=== PATIENT | female | born 1945 | race Caucasian/White ===

== ENCOUNTER → 2016-11-13 | Outpatient (CLI) | payer MEDICARE, OTHER ==
--- NOTE | 2016-11-13 11:46 | Diagnostic Imaging Report ---
EXAMINATION: Left breast diagnostic mammogram with a Computer Aided Detection (CAD) system. COMPARISON: 04/29/2016. FINDINGS: There is an asymmetry seen along the upper aspect of the lateral projection which, upon compression view, appears to resolve and is suggestive of summation artifact of parenchyma. The previously seen asymmetry along the central aspect of the left CC projection is less prominent, suggestive of summation artifact. IMPRESSION: No mammographic evidence of malignancy. An ultrasound evaluation is pending. ACR BI-RADS Category 0: Incomplete. (Needs additional imaging evaluation). Result letter will be mailed to the patient. Note: At least 10% of breast cancer is not imaged by mammography. Dictated by: Dictated on workstation # [id number]
--- NOTE | 2016-11-13 11:47 | Diagnostic Imaging Report ---
EXAMINATION: Left breast ultrasound. INDICATION: Asymmetry in the axillary region of the left breast. FINDINGS: The upper outer aspect of the left breast and axillary region were scanned with no underlying abnormality seen. IMPRESSION: Negative study. Annual screening mammograms are recommended. ACR BI-RADS Category 1: Negative. Dictated by: Dictated on workstation # [id number]
== END ==
LOC: RAD 08:33
PROVIDERS: ATTEND Nurse Practitioner
DX: N64.89 Other specified disorders of breast (principal)
CPT/HCPCS: 76642

== ENCOUNTER → 2016-12-13 | Outpatient (CLI) | payer MEDICARE, OTHER ==
--- NOTE | 2016-12-13 11:45 | Diagnostic Imaging Report ---
PROCEDURE: US Thyroid. TECHNIQUE: Multiple real-time grayscale images were obtained of the thyroid in various projections. INDICATION: Multinodular goiter. FINDINGS: The right lobe measures 4 x 1.6 x 1.5 cm. There is an 8 x 7 x 7 mm nodule in the upper pole. There is a 9 x 8 x 8 mm nodule in the lower on the right. The left lobe measures 3.8 x 1.9 x 1.4 cm. There is a large solid heterogeneous nodule in the left upper lobe measuring 2 x 1.4 x 1.3 cm. No hypervascularity demonstrated. IMPRESSION: Bilateral solid nodules with dominant nodule in the left lobe measuring 2 cm in greatest dimension. Would recommend either fine needle aspiration or sequential ultrasound followup. Dictated by: Dictated on workstation # [id number]
== END ==
LOC: RAD 10:51
PROVIDERS: ATTEND Family Medicine
DX: E04.2 Nontoxic multinodular goiter (principal)
CPT/HCPCS: 76536

== ENCOUNTER 2017-03-27 09:21 | Outpatient (CLI) | payer MEDICARE, OTHER ==
[~2017-03-27] VITALS: Ht 167.6 cm; Wt 91.6 kg
[2017-03-27 09:56] VITALS: BP 171/97
[2017-03-27] MEDS ORDERED: CALC-78 PO (14:40)
[2017-03-27] MEDS ORDERED: VITA150T PO (14:40)
[2017-03-27] MEDS ORDERED: curamin PO (14:40)
[2017-03-27] MEDS ORDERED: bio cleanse PO (14:40)
[2017-03-27] MEDS ORDERED: POTA99TA21 PO (14:40)
[2017-03-27] MEDS ORDERED: KRIL1CAP PO (14:40)
[2017-03-27] MEDS ORDERED: VITA-252 PO (14:40)
[2017-03-27] MEDS ORDERED: D-MA50PO PO (14:40)
[2017-03-27] MEDS ORDERED: [UNRECOGNIZED DRUG - OTHER] PO (14:40)
[2017-03-27] MEDS ORDERED: ESTR42.52 VG (14:40)
[2017-03-27] MEDS ORDERED: CRAN500T2 PO (14:40)
[2017-03-27] MEDS ORDERED: CHOLECALCIFEROL PO (14:40)
[2017-03-27] MEDS ORDERED: MULT-1038 PO (14:40)
[2017-03-27] MEDS ORDERED: VIT1CAPS9 PO (14:40)
[2017-03-27] MEDS ORDERED: C250T PO (14:40)
[2017-03-27] MEDS ORDERED: MAGNESIUM CALM PO (14:40)
[2017-03-27] MEDS ORDERED: HEMP SEED OIL PO (14:41)
== END 2017-03-27 09:45 | disposition home or self-care (01) ==
LOC: PREOP 09:21
PROVIDERS: ATTEND Podiatrist Foot & Ankle Surgery
DX: Z01.818 Encounter for other preprocedural examination (principal); M21.612 Bunion of left foot; M20.42 Other hammer toe(s) (acquired), left foot
CPT/HCPCS: 87081

== ENCOUNTER 2017-04-21 06:00 | Day surgery (SDC) | payer MEDICARE, OTHER ==
[~2017-04-21] VITALS: Ht 167.6 cm; Wt 91.6 kg
[~2017-04-21 06:00] MED LIST: C250T PO; CALC-78 PO; CHOLECALCIFEROL PO; CRAN500T2 PO; D-MA50PO PO; ESTR42.52 VG; HEMP SEED OIL PO; KRIL1CAP PO; MAGNESIUM CALM PO; MULT-1038 PO; POTA99TA21 PO; VIT1CAPS9 PO; VITA-252 PO; VITA150T PO; [UNRECOGNIZED DRUG - OTHER] PO; bio cleanse PO; curamin PO
[2017-04-21 06:30] VITALS: BP 148/87
[2017-04-21] MEDS ORDERED: LIDOCAINE PF 2% 5 ML (XYLOCAINE) VIAL ONE (06:54)
[2017-04-21] MEDS ORDERED: SEVOFLURANE (ULTANE) 15 ML INHAL SOLN ONE ×2 (06:54→09:55)
[2017-04-21] MEDS ORDERED: proPOfol 200 MG/20 ML (DIPRIVAN) VIAL IV ONE (06:54)
[2017-04-21] MEDS ORDERED: DEXAMETHASONE 10 MG/ML (DECADRON) 1 ML VIAL ONE (06:54)
[2017-04-21] MEDS ORDERED: ONDANSETRON 4 MG/2 ML (SDV) Z0FRAN ONE (06:54)
[2017-04-21] MEDS ORDERED: fentaNYL INJECTION 100 MCG/2 ML AMP ONE (06:54)
[2017-04-21] MEDS ORDERED: MIDAZOLAM 2 MG/2 ML (VERSED) VIAL ONE (06:55)
[2017-04-21] MEDS ORDERED: BUPIVACAINE 0.5% 30 ML (SENSORCAINE) VIAL ONE (06:58)
[2017-04-21] MEDS ORDERED: ceFAZolin 1 GM/NS 50 ML IVPB IV ONE ×2 (07:15)
[2017-04-21] MEDS: LACTATED RINGERS 1,000 ML IV PRN ×2 (07:27→09:25)
[2017-04-21] MEDS ORDERED: LISI-556 PO (07:30)
--- NOTE | 2017-04-21 07:38 | Progress Note-Pre Operative ---
Pre-Operative Progress Note H&P Reviewed The H&P was reviewed, patient examined and no changes noted. Date Seen by Provider: Apr 21, 2017 Time Seen by Provider: 07:37 Date H&P Reviewed: Apr 21, 2017 Time H&P Reviewed: 07:37 Pre-Operative Diagnosis: Hallux Valgus, Hammertoes 2,3,4,5 and hypertrophic 2, 3 metatarsals, left ZHANNA MYLES DPM Apr 21, 2017 7:38 am
[2017-04-21] MEDS ORDERED: LACTATED RINGERS 1,000 ML IV SCH (10:10)
--- NOTE | 2017-04-21 10:10 | Progress Note-Post Operative ---
Post-Operative Progess Note Surgeon (s)/Data Reduction Technician (s) Surgeon ZHANNA MYLES DPM Data Reduction Technician: NONE Pre-Operative Diagnosis Hallux Valgus, Hammertoes 2,3,4,5 and hypertrophic 2, 3 metatarsals, left Post-Operative Diagnosis same Procedure & Operative Findings Date of Procedure 04/21/17 Procedure Performed/Findings Naeem-Zaki type bunionectomy, left Reduction of hammertoes, 2, 3, 4, 5, left Anesthesia Type General Estimated Blood Loss Estimated blood loss (mL): Minimal Specimens/Packing Specimens Removed none ZHANNA MYLES DPM Apr 21, 2017 10:09
[2017-04-21] MEDS ORDERED: morphine INJ 4 MG/ML 1 ML (VIAL/SYRINGE) IV PRN (10:15)
[2017-04-21] MEDS ORDERED: CEPH500C PO (10:15)
[2017-04-21] MEDS ORDERED: ONDANSETRON 4 MG/2 ML (SDV) Z0FRAN IVP PRN (10:15)
[2017-04-21 11:00] VITALS: BP 169/84
[2017-04-21 11:30] VITALS: BP 164/77
[2017-04-21 12:00] VITALS: BP 151/98
[2017-04-21 12:25] VITALS: BP 151/98
--- NOTE | 2017-04-21 13:56 | OPERATIVE REPORT ---
DATE OF SERVICE: 04/21/2017 SURGEON: Zhanna Myles DPM PREOPERATIVE DIAGNOSES: 1. Hallux abductovalgus metatarsal primus varus, left. 2. Hammer digit syndrome 2, 3, 4 and 5, left foot. POSTOPERATIVE DIAGNOSES: 1. Hallux abductovalgus metatarsal primus varus, left. 2. Hammer digit syndrome 2, 3, 4 and 5, left foot. PROCEDURE: 1. Modified Naeem-Zaki bunionectomy, left. 2. Reduction of hammertoe 2, 3, 4 and 5 left foot. WOUND CLASS: Clean. ANESTHESIA: General. HEMOSTASIS: Pneumatic thigh tourniquet at 250 mmHg. INDICATION: This 72-year-old female presents complaining of painful bunion and hammertoes, left foot. Conservative therapy has met with unsatisfactory result and the patient is agreeable to surgical intervention after risks and complications were discussed at length. No guarantees were extended to the patient and she is willing to proceed. DESCRIPTION OF PROCEDURE: The patient was brought back to the operating room table, placed in secure supine position. A general anesthetic was then induced. Appropriate timeout was performed. A pneumatic thigh tourniquet was placed on the left lower extremity over several layers of padding. The left foot was then prepped and draped in normal sterile manner. The left foot was then elevated and allowed to exsanguinate after which the tourniquet was inflated to 250 mmHg. Attention was then directed to the dorsal aspect of the left first metatarsophalangeal joint where a 6 cm longitudinal linear incision was created. The incision was deepened down to the capsular tissue overlying the metatarsophalangeal joint where a longitudinal capsulotomy was performed exposing the hypertrophic eminence. Medial eminence to the first metatarsal head, which was resected utilizing a power sagittal saw. The dorsal eminence to the first metatarsal head was also reduced with a power sagittal saw. Blunt dissection was carried out into the first intermetatarsal space. With the release of the conjoint tendon of the adductor hallucis as well as the fibular sesamoidal ligament and a lateral capsulorrhaphy was also performed. The hallux was then forcibly adducted, released and additional fibers holding in its abnormal position. Attention was redirected to the medial aspect of the first metatarsal where a Chevron-type osteotomy was performed allowing the fragment to translocate laterally and it was fixated in its corrected position with a 0.062 threaded K-wire driven from proximal dorsal to distal plantar. The K-wire was cut, flushed with the dorsal aspect of the first metatarsal. The head of the first metatarsal was further contoured and smoothed with a power sagittal saw and power fadumo. There remained some medial deviation to the hallux and an Zaki-type procedure was then performed. The proximal phalanx was exposed with subperiosteal dissection, after which a wedge of bone was resected with the base medial and the lateral cortices held intact. Once the wedge of bone was resected, the gap was closed noting a good reduction of the lateral deviation of the hallux. Two siebel administrator holes were created at the dorsal medial aspect of the osteotomy after which a 28-gauge monofilament wire was passed through this siebel administrator hole securing the osteotomy in a closed position. Excellent bony apposition and fixation was noted to the first metatarsal as well as the proximal phalanx of the left hallux. The wound was flushed with copious amounts of normal saline throughout the procedure and closure was then performed in layers. Deep closure was performed with 3-0 Vicryl, superficial with 4-0 Vicryl, skin closed with 4-0 Prolene in a horizontal mattress type stitch. Attention was then directed to the dorsal aspect of the contracted second, third and fourth digits where the same procedure was performed to each toe. An incision was created from the surgical neck of the metatarsal to the distal interphalangeal joint. Dissection was carried out to deeper tissues with great care to identify and retract all vital neurovascular structures. All the necessary blood vessels were cauterized as encountered. The incision was deepened down to the extensor tendon overlying the proximal phalanx of the second, third and fourth digits where a Z slide lengthening was performed. The extensor tendon was reflected proximally and distally. The extensor chew overlying the metatarsophalangeal joint was released after which a dorsal capsulorrhaphy and release of the medial lateral collateral ligaments were performed to each of the exposed second, third and fourth metatarsophalangeal joint areas. Next, a peg-in-hole type arthrodesis was performed to the proximal interphalangeal joint with power sagittal saw and power fadumo. Excellent reduction of the hammertoe deformities was noted and the fixation was a 0.054 smooth K wire driven through the toes to secure them in their new rectus alignment. The excess K wire was cut and a protective ball placed over the end of the wire. The wounds were flushed with copious amounts of normal saline and closure was performed in layers with deep closure with a 3-0 Vicryl, superficial with 4-0 Vicryl, skin closed with 4-0 Prolene in a horizontal mattress type stitch. Attention was then directed to the left fifth digit where adductor varus contracture was noted. Two semi-elliptical incisions from proximal lateral to distal medial were created overlying the proximal interphalangeal joint. The circumscribed skin was removed in total. The incision was deepened down to the extensor tendon where a transverse tenotomy was performed as well as release of the medial lateral collateral ligaments exposing the hypertrophic head of the proximal phalanx. This head was then resected utilizing power sagittal saw. The wound was flushed with copious amounts of normal saline and closure was performed in layers. Deep closure was performed with 4-0 Vicryl, superficial closure was with 4-0 Vicryl and skin closed with 4-0 Prolene in a horizontal mattress type stitch. Postoperative injection consisted of 24 mL of 0.5% Marcaine injected in a local infusion to the surgical sites. A postoperative dressing was applied after the tourniquet was released noting appropriate capillary refill time to all digits of the left foot. The dressing consisted of Betadine soaked Adaptic, sterile 4 x 4, sterile Kerlix; all secured with Coban wrap. The patient tolerated the anesthesia and procedure well, was transported from the operating room to the recovery area with vital signs stable and vascular status intact to all digits of the left foot. She was given a prescription for Keflex postoperatively. She apparently has intolerance to codeine and preferred to just take Tylenol postoperatively for pain. She refused tramadol as an alternative. The patient will follow up in my office in 10 days' period of time or sooner if necessary. 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
--- NOTE | 2017-04-21 15:06 | Physical Therapy Ortho Eval ---
PT Orthopedic Evaluation Type of Surgery surgical repair of hallux rigidus/hammertoe. Prior Level of Function Current Living Status: Spouse Locomotion (Upon Admit): Independent Established Durable Medical Eq: Crutches Subjective Subjective Pt and spouse prefer crutches for ambulation instead of FWW. Entry Into Home: Stairs Without Railing Steps Into Home: 3 Steps Accessories: No Railing Motor Control Motor Control: Motor Control WNL ROM ROM: WFL Strength Strength: WFL Transfer Transfers (B, C, W/C) (FIM): 4 (post treatment 6) Gait Gait Assistive Device: Crutches Right Lower Extremity: Right Weight Bearing Status RLE: Full Weight Bearing Left Lower Extremity: Left Weight Bearing Status LLE: Non Weight Bearing Other Weight Bearing Inst.: spouse reports DR told him she could put weight through her heel Gait (FIM): 4 (post treatment, 5) Distance (FIM): 3=150 ft Summary/Comments Gait training with walker and crutches, pt and spouse prefer crutches. Education on safety with crutches and fit the crutches. Stair training with crutches practicing on a curb step. Pt able to go up/down with with close CGA and skilled cues for sequencing. Reviewed sequencing with pt/spouse and they were able to return verbalize. Spent time problem solving the stairs because initially, pt was unable to hop up the step. Attempted practice sitting and scooting, but pt unable to get to the step. Eventually, pt able to complete with crutches. Treatment Rendered Treatment: Gait Train, Step Train Assessment/Goals Goal Time Frame: 1 Visit Safe Ambulation: Yes Plan Treatment Plan: Discharge Time Time In: 1130 Time Out: 1215 Total Billed Treatment Time: 45 Billed Treatment Time visit EVM 30 GT 15 Yes PT/OT Therapy GCodes Therapy Functional Limitation: Physical Therapy Test(s)/Tool used to determine: Level of Assistance Scale Functional Limitation-Current Charge Code: MOBCUR Modifier: CK Functional Limitation-Goal Charge Code: MOBGOAL Modifier: CJ Functional Limitation-D/C Charge Codes: MOBDC Modifier: HALIE RUELAS PT Apr 21, 2017 15:06
--- NOTE | 2017-04-21 21:17 | Diagnostic Imaging Report ---
EXAMINATION: Two views of the left foot. INDICATION: Postop left foot. FINDINGS: There are multiple osteotomies seen of the heads of the proximal phalanges of the second, third, fourth, and fifth toes and osteotomies with internal fixation along the distal aspect of the first metatarsal and the proximal phalanx at the great toe level. Interphalangeal joint fusion with K-wires of the second, third, and fourth toes is seen. Joint alignment is in good position. IMPRESSION: Multiple osteotomies and internal fixation/joint fusion findings as described. Dictated by: Dictated on workstation # [id number]
== END 2017-04-21 12:25 | disposition home or self-care (01) ==
LOC: SDC 06:00
PROVIDERS: ATTEND Podiatrist Foot & Ankle Surgery
DX: M20.12 Hallux valgus (acquired), left foot (principal); M20.42 Other hammer toe(s) (acquired), left foot; I10 Essential (primary) hypertension; J30.2 Other seasonal allergic rhinitis; E04.1 Nontoxic single thyroid nodule; Z79.899 Other long term (current) drug therapy; Z88.2 Allergy status to sulfonamides; Z88.6 Allergy status to analgesic agent
CPT/HCPCS: 73620

== ENCOUNTER → 2017-06-02 | Outpatient (CLI) | payer MEDICARE, OTHER ==
[~2017-06-02] MED LIST changes: +CEPH500C PO; +LISI-556 PO
--- NOTE | 2017-06-02 18:19 | Diagnostic Imaging Report ---
PROCEDURE: US Thyroid. TECHNIQUE: Multiple real-time grayscale images were obtained of the thyroid in various projections. INDICATION: Thyroid nodules. Comparison made with prior examination from 12/13/2016. FINDINGS: Right lobe of the thyroid measures 4.2 x 1.6 x 1.4 cm. There is a heterogeneous nodule superiorly on the right measuring 0.8 x 0.7 cm. There is a similar nodule inferiorly measuring 0.8 x 0.9 cm. Left lobe of the thyroid measures 4.1 x 1.7 x 1.5 cm. There is a heterogeneous solid nodule in the superior aspect of the left lobe of the thyroid measuring 1.3 x 2 x 1.4 cm. IMPRESSION: Stable bilateral thyroid nodules likely adenomas. Recommend continued six-month follow-up to ensure stability. Dictated by: Dictated on workstation # [id number]
== END ==
LOC: RAD 09:36
PROVIDERS: ATTEND Nurse Practitioner Family
DX: E04.2 Nontoxic multinodular goiter (principal)
CPT/HCPCS: 76536

== ENCOUNTER → 2017-08-21 | Outpatient (CLI) | payer MEDICARE, OTHER ==
--- NOTE | 2017-08-21 13:09 | Diagnostic Imaging Report ---
INDICATION: Routine screening. COMPARISON: 04/12/2016 and 03/01/2014. TECHNIQUE: Screening digital mammography was performed bilaterally with a Computer Aided Detection (CAD) system. FINDINGS: Scattered fibroglandular densities are identified bilaterally. The parenchymal pattern appears stable. No dominant mass or malignant appearing microcalcifications are seen. There is an intraparenchymal lymph node in the region of the axillary tail on the left, stable. The axillae are unremarkable. IMPRESSION: No mammographic features suspicious for malignancy are identified. ACR BI-RADS Category 2: Benign findings. Result letter will be mailed to the patient. Note: At least 10% of breast cancer is not imaged by mammography. Dictated by: Dictated on workstation # [id number]
== END ==
LOC: RAD 10:42
PROVIDERS: ATTEND Obstetrics & Gynecology
DX: Z12.31 Encounter for screening mammogram for malignant neoplasm of breast (principal)
CPT/HCPCS: 77067

== ENCOUNTER → 2017-12-05 | Outpatient (CLI) | payer MEDICARE, OTHER ==
--- NOTE | 2017-12-05 11:00 | Diagnostic Imaging Report ---
PROCEDURE: US Thyroid. TECHNIQUE: Multiple real-time grayscale images were obtained of the thyroid in various projections. INDICATION: Thyroid nodules, followup. Correlation is made with prior thyroid ultrasound from 06/02/2017. Right lobe of the thyroid measures 3.9 x 1.5 x 1.6 cm and the left lobe measures 4.0 x 1.6 x 1.5 cm. Isthmus is 3 mm in thickness. Bilateral thyroid nodules again noted. Subcentimeter nodules in the right lobe appear stable. A dominant solid mass in the upper pole left lobe measures 2.1 x 1.4 x 1.6 cm. This compares with 2.0 x 1.3 x 1.4 cm. IMPRESSION: Overall fairly stable appearance to the thyroid when compared to examination 6 months earlier. Continued followup is recommended to confirm stability. The dominant nodule in the left lobe would be amenable to fine-needle aspiration, if clinically indicated. Dictated by: Dictated on workstation # [id number]
== END ==
LOC: RAD 09:21
PROVIDERS: ATTEND Nurse Practitioner Family
DX: E04.2 Nontoxic multinodular goiter (principal)
CPT/HCPCS: 76536

== ENCOUNTER → 2018-05-14 | Outpatient (CLI) | payer MEDICARE, OTHER ==
--- NOTE | 2018-05-14 18:11 | Diagnostic Imaging Report ---
PROCEDURE: MRI right joint upper extremity without contrast. TECHNIQUE: Multiplanar, multisequence non contrast-enhanced MRI of the right upper extremity was accomplished. INDICATION: Shoulder pain. COMPARISON: There are no prior studies available for comparison. FINDINGS: On the T2 fat-saturated coronal series, there is an area of altered signal along the bursal aspect of the midportion of the rotator cuff. I suspect that this does represent a partial tear. There is also a rim rent tear of the rotator cuff along the anterior-most insertion of the rotator cuff. The rotator cuff in this area is slightly bunched. The supraspinatus muscle however is not retracted. There is hypertrophy of the acromioclavicular joint and this does result in mild narrowing of the outlet for the supraspinatus muscle. There is also a trace amount of fluid in the subacromial and subdeltoid bursa and this suggests edema/inflammation. The biceps tendon and the subscapularis tendon are intact. The labrum is thinned and irregular and most likely torn on a degenerative basis. There is no evidence for joint effusion but there is a small amount of fluid in the bursa anterior to the shoulder joint. There is no abnormal signal arising from the osseous structures to indicate bone edema or fracture. IMPRESSION: 1. There is a tear along the bursal aspect of the midportion of the rotator cuff. There is also another tear extending along the anterior insertion of the rotator cuff. This would be consistent with a rim rent tear. The supraspinatus muscle is slightly bunched but not retracted. 2. There is hypertrophy of the acromioclavicular joint and this does result in mild narrowing of the outlet for the supraspinatus muscle. There also appears to be an element of tendinitis present. 3. The labrum is thinned and torn on a degenerative basis. 4. There is no acute bony abnormality noted. Dictated by: Dictated on workstation # [id number]
--- NOTE | 2018-05-14 18:57 | Diagnostic Imaging Report ---
PROCEDURE: MRI left upper extremity without contrast. TECHNIQUE: Multiplanar, multisequence non contrast-enhanced MRI of the left upper extremity was accomplished. INDICATION: Shoulder pain. COMPARISON: There are no prior MRI examinations available for comparison. FINDINGS: On the T2 fat-saturated series, there are small areas of altered signal within the substance of the rotator cuff. These are more likely due to tendinosis than to a partial tear. The bursal aspect of the rotator cuff is somewhat thinned, but for the most part, the rotator cuff seems to be intact. The supraspinatus muscle is not retracted or bunched. There is hypertrophy of the acromioclavicular joint, and this does result in mild narrowing of the outlet for the supraspinatus muscle. There is also a small amount of fluid in the subacromial bursa, and this does suggest that there is an element of inflammation present as well. The biceps tendon and the subscapularis tendon are intact. The labrum is thinned and most likely torn on a degenerative basis. There is a very small joint effusion present. There is no abnormal signal arising from the osseous structures to suggest bone edema or a fracture. IMPRESSION: 1. There is tendinosis of the rotator cuff, but for the most part, the rotator cuff appears to be intact. 2. There is hypertrophy of the acromioclavicular joint, and this does slightly narrow the outlet for the supraspinatus muscle. The trace amount of fluid in the subacromial bursa also suggests that there is an element of inflammation present. 3. The labrum is thinned and most likely torn on a degenerative basis. 4. There is no acute bony abnormality noted. Dictated by: Dictated on workstation # [id number]
== END ==
LOC: RAD 16:32
PROVIDERS: ATTEND Orthopaedic Surgery
DX: M75.102 Unspecified rotator cuff tear or rupture of left shoulder, not specified as traumatic (principal); M47.814 Spondylosis without myelopathy or radiculopathy, thoracic region; M25.812 Other specified joint disorders, left shoulder; M25.811 Other specified joint disorders, right shoulder; M65.89 Other synovitis and tenosynovitis, multiple sites; M75.101 Unspecified rotator cuff tear or rupture of right shoulder, not specified as traumatic
CPT/HCPCS: 73221

== ENCOUNTER 2018-06-24 09:57 | Outpatient (CLI) | payer MEDICARE, OTHER ==
[~2018-06-24] VITALS: Ht 167.6 cm; Wt 93.6 kg
[2018-06-24] MEDS ORDERED: VITA1CAP16 PO (10:24)
[2018-06-24] MEDS ORDERED: FEXO180T84 PO (10:24)
[2018-06-24] MEDS ORDERED: IODINE PO (10:24)
[2018-06-24 10:27] VITALS: BP 156/86
[2018-06-24 10:57] LABS: BILIRUBIN,URINE NEGATIVE (NEGATIVE); CLARITY,URINE CLEAR; COLOR,URINE YELLOW; GLUCOSE, URINE (UA) NEGATIVE (NEGATIVE); KETONES,URINE NEGATIVE (NEGATIVE); LEUKOCYTE ESTERASE ,URINE 1+ (NEGATIVE); NITRITE,URINE NEGATIVE (NEGATIVE); PH,URINE 7 (5-9); PROTEIN,URINE NEGATIVE (NEGATIVE); UROBILINOGEN,URINE NORMAL (NORMAL)
[2018-06-24 10:57] LABS: BASOPHILS % (AUTO) 0 % (0-10); EOSINOPHILS # (AUTO) 0.2 10^3/uL (0.0-0.3); EOSINOPHILS % (AUTO) 3 % (0-10); HEMATOCRIT 40 % (35-52); HEMOGLOBIN 13.8 G/DL (11.5-16.0); LYMPHOCYTES # (AUTO) 1.5 X 10^3 (1.0-4.0); LYMPHOCYTES % (AUTO) 27 % (12-44); MEAN CORPUSCULAR HEMOGLOBIN 29 PG (25-34); MEAN CORPUSCULAR HGB CONC 35 G/DL (32-36); MEAN CORPUSCULAR VOLUME 84 FL (80-99); MONOCYTES # (AUTO) 0.3 X 10^3 (0.0-1.0); MONOCYTES % (AUTO) 5 % (0-12); NEUTROPHILS # (AUTO) 3.7 X 10^3 (1.8-7.8); NEUTROPHILS % (AUTO) 65 % (42-75); PLATELET COUNT 242 10^3/uL (130-400); RED CELL DISTRIBUTION WIDTH 13.9 % (10.0-14.5); WHITE BLOOD COUNT 5.7 10^3/uL (4.3-11.0)
[2018-06-24 11:09] LABS: BACTERIA,URINE MODERATE /HPF
[2018-06-24 11:10] LABS: PROTHROMBIN TIME PATIENT 13.1 SEC (12.2-14.7)
[2018-06-24 11:22] LABS: ALANINE AMINOTRANSFERASE 25 U/L (0-55); ALBUMIN 4.1 GM/DL (3.2-4.5); ALKALINE PHOSPHATASE 75 U/L (40-136); BILIRUBIN,TOTAL 0.5 MG/DL (0.1-1.0); BUN/CREATININE RATIO 23; CALCIUM 9.4 MG/DL (8.5-10.1); CARBON DIOXIDE 23 MMOL/L (21-32); CHLORIDE 109 MMOL/L (98-107); CREATININE SERUM 0.79 MG/DL (0.60-1.30); ERYTHROCYTE SEDIMENTATION RATE 7 MM/HR (0-30); GFR ESTIMATED > 60; GLUCOSE 101 MG/DL (70-105); POTASSIUM 4.1 MMOL/L (3.6-5.0); SODIUM 142 MMOL/L (135-145); TOTAL PROTEIN 6.8 GM/DL (6.4-8.2)
--- NOTE | 2018-06-24 11:38 | Diagnostic Imaging Report ---
EXAMINATION: PA and lateral Chest at 10:58 a.m. INDICATION: Preop total knee. COMPARISON: There are no prior studies available for comparison. FINDINGS: The heart size is within normal limits. There are a few coarse interstitial densities in each lung base. I suspect these findings are chronic in nature. If previous studies are available, they would be helpful for comparison. There is no evidence for overt failure, pneumonia, or for a pleural effusion. The mediastinum is not widened. The osseous structures are intact. IMPRESSION: 1. The coarse interstitial densities in both lower lobes are most likely chronic in nature. If previous exams are available, they would be helpful for comparison. 2. There is no acute cardiopulmonary abnormality identified. Dictated by: Dictated on workstation # [id number]
--- NOTE | 2018-06-24 15:48 | NUR ---
CALLED AND FAXED LAB WORK TO DR. VILLASEÑOR'S OFFICE AND PRIMARY CARE PROVIDER DREA AT [facility].
== END 2018-06-24 16:01 | disposition home or self-care (01) ==
LOC: PREOP 09:57
PROVIDERS: ATTEND Orthopaedic Surgery
DX: Z01.810 Encounter for preprocedural cardiovascular examination (principal); Z01.811 Encounter for preprocedural respiratory examination; Z01.812 Encounter for preprocedural laboratory examination; Z11.2 Encounter for screening for other bacterial diseases; M17.12 Unilateral primary osteoarthritis, left knee; R53.83 Other fatigue
CPT/HCPCS: 36415; 71046; 80053; 81000; 85025; 85610; 85652; 86850; 86900; 86901; 87081

== ENCOUNTER 2018-06-29 14:08 | Outpatient (RCR) | payer MEDICARE, OTHER ==
[~2018-06-29 14:08] MED LIST changes: +FEXO180T84 PO; +IODINE PO; +VITA1CAP16 PO
== END 2018-06-29 17:00 | disposition home or self-care (01) ==
PROVIDERS: ATTEND Nurse Practitioner Family
DX: M25.512 Pain in left shoulder (principal); M25.511 Pain in right shoulder

== ENCOUNTER 2018-07-01 07:33 | Inpatient (IN) | payer MEDICARE, OTHER ==
--- NOTE | 2018-06-22 12:12 | HISTORY AND PHYSICAL ---
DATE OF SERVICE: 07/01/2018 DATE OF ADMISSION: 07/01/2018, for left total knee arthroplasty. The patient will require regular inpatient admission for pain management issues, gait abnormalities and instability as well as weakness. HISTORY OF PRESENT ILLNESS: The patient is a 73-year-old female with longstanding progressive left knee pain. She has undergone treatment with injections with only temporary relief of her symptoms. Radiographs reveal severe medial ad patellofemoral arthrosis. Due to functional impairment and failure to improve with conservative measures, the patient has elected to proceed with surgical intervention. REVIEW OF SYSTEMS: No chest pain, no shortness of breath, no dysuria. PAST MEDICAL HISTORY: Significant for . PAST SURGICAL HISTORY: Hysterectomy, abdominal A and P repair, right total knee arthroplasty and foot surgery. FAMILY HISTORY: Significant for cancer. PRIMARY CARE PROVIDER: Dr. Ruano. MEDICATIONS: Cranberry, potassium, Estrace, Krill oil, folic acid, vitamins, lisinopril. ALLERGIES: CIPRO, CODEINE and SULFA. SOCIAL HISTORY: The patient denies alcohol and tobacco use. PHYSICAL EXAMINATION: GENERAL: The patient is well developed, well-nourished, in no acute distress. HEENT: Normocephalic, atraumatic. Pupils are equal, round and reactive to light. Oropharynx is clear. NECK: Supple, no lymphadenopathy. LUNGS: Clear to auscultation bilaterally. HEART: Regular rate and rhythm. ABDOMEN: Soft, nontender, nondistended. EXTREMITIES: The patient ambulates with an antalgic gait on the left. The left knee demonstrates a moderate effusion. Range of motion is 0/5/120. There is no varus valgus laxity. Negative anterior and posterior drawer. IMPRESSION: Left knee severe osteoarthritis, unresponsive to conservative measures. PLAN: Left total knee arthroplasty. The risks, benefits, options, ramifications and recovery were discussed at length with the patient. She understands and wishes to proceed. Job ID: [id number] DocumentID: [id number] Dictated Date: 06/22/2018 11:32:36 Manager E Learning Date: 06/22/2018 12:11:14 Dictated By: VETO VILLASEÑOR MD
--- NOTE | 2018-06-24 14:01 | NUR ---
MEDICATIONS WERE REVIEWED IN PREOP. I VERIFIED WITH [facility] THEY FILLED LISINOPRIL 5MG DAILY #[id number] 05-11-18. LEFT OTHER MEDICATIONS THEY WERE REVIEWED BY PREOP NURSE.
[~2018-07-01] VITALS: Ht 167.6 cm; Wt 93.6 kg
[2018-07-01 07:35] VITALS: BP 145/98
[2018-07-01] MEDS ORDERED: MIDAZOLAM 2 MG/2 ML (VERSED) VIAL ONE (07:42)
[2018-07-01] MEDS ORDERED: ROPIVACAINE 5MG/ML 30ML VIAL ONE (07:42)
[2018-07-01] MEDS ORDERED: LIDOCAINE PF 2% 5 ML (XYLOCAINE) VIAL ONE ×2 (07:42→08:33)
[2018-07-01] MEDS ORDERED: CEFUROXIME INJECTION 1,500 MG in WATER (STERILE) FOR INJECTION 15 ML IV ONE (07:45)
[2018-07-01] MEDS: LACTATED RINGERS 1,000 ML IV PRN ×2 (08:10→09:57)
[2018-07-01] MEDS ORDERED: ONDANSETRON 4 MG/2 ML (SDV) Z0FRAN ONE (08:33)
[2018-07-01] MEDS ORDERED: DEXAMETHASONE 10 MG/ML (DECADRON) 1 ML VIAL ONE (08:33)
[2018-07-01] MEDS ORDERED: proPOfol 200 MG/20 ML (DIPRIVAN) VIAL IV ONE (08:33)
[2018-07-01] MEDS ORDERED: fentaNYL INJECTION 100 MCG/2 ML AMP ONE ×2 (08:34→10:53)
[2018-07-01] MEDS ORDERED: SEVOFLURANE (ULTANE) 15 ML INHAL SOLN ONE ×7 (08:34→10:44)
[2018-07-01] MEDS ORDERED: ROCURONIUM 10 MG/ML 5 ML SYRINGE IV ONE (08:34)
[2018-07-01] MEDS ORDERED: INTRA-ARTICULAR IU ONE ×5 (09:00)
--- NOTE | 2018-07-01 09:03 | Progress Note-Pre Operative ---
Pre-Operative Progress Note H&P Reviewed The H&P was reviewed, patient examined and no changes noted. Date Seen by Provider: Jul 01, 2018 Time Seen by Provider: :02 Date H&P Reviewed: Jul 01, 2018 Time H&P Reviewed: 09:02 Pre-Operative Diagnosis: left knee primary osteoarthritis VETO VILLASEÑOR MD Jul 01, 2018 09:03
--- NOTE | 2018-07-01 09:05 | Progress Note-Post Operative ---
Post-Operative Progess Note Surgeon (s)/Cardiac Cath Lab Manager (s) Surgeon VETO VILLASEÑOR MD Cardiac Cath Lab Manager: Austin Mullins Pre-Operative Diagnosis left knee primary osteoarthritis Post-Operative Diagnosis left knee primary osteoarthritis Procedure & Operative Findings Date of Procedure 07/01/18 Procedure Performed/Findings left total knee arthroplasty Anesthesia Type GETA Estimated Blood Loss Estimated blood loss (mL): minimal Specimens/Packing Specimens Removed none Packing: none VETO VILLASEÑOR MD Jul 01, 2018 09:05
[2018-07-01] MEDS ORDERED: OXYC1TAB87 PO (09:06)
--- NOTE | 2018-07-01 09:08 | D/C HH Face to Face Order ---
D/C Face to Face Orders Instructions for Patient [facility], Patient Instructions/FollowUp: three weeks Physician to follow Patient: three weeks Discharge Diet for Home: Regular Diet Patient Data-Allergies,Ht & Wt Patient Allergies: Coded Allergies: codeine (Verified Allergy, Severe, RACING HEART, 06/24/18) Sulfa (Sulfonamide Antibiotics) (Verified Allergy, Mild, "DOES NOT WORK", 06/24/18) ciprofloxacin (Verified Allergy, Unknown, PT REFUSES TO TAKE, 06/24/18) Height (Feet): 5 Height (Inches): 6.00 Weight (Pounds): 206 Weight (Ounces): 7.0 Home Health Need/Face to Face Date of Face to Face: Jul 01, 2018 Clinical Findings: Instability, Muscle weakness, Pain with ambulation, Unsteady gait I have seen Pt [id number]: Yes Discharged To: Home Diagnosis/Conditions: left total knee arthroplasty Patient is Homebound due to: Yahaira fall risk due to instabilty, Muscle weakness , Pain w/ambulation Homebound Status Due to the above stated illness, injury or surgical procedure (medical condition or diagnosis) and associated clinical findings, the patient is homebound because of his/her inability to leave home except with aid of a supportive device and/or person AND leaving the home requires a considerable and taxing effort or is medically contraindicated. Pt req the following assistanc: Walker Home Health Nursing Orders Home Health Services Order: Physical Therapy-Evaluate & Treat DC left knee juwan and apply steri strips 07/15/18 Home Health Infusion Therapy Line Start Date: Jul 01, 2018 Line Start Time: 809 Line Type: Peripheral IV Site Location: Forearm Therapy Orders Therapy Orders: Physical Therapy, PT to assess for OT Therapy Specific Orders: Eval assistive deivces, Teach enviro modifications/ safety, Gait training, Provider maintenance therapy, Restore ROM Certify Stmt I certify that this patient is under my care and that I, a nurse practitioner or a physician; a chiropractor assistant working with me, had a face to face encounter that - meets the physician face to face encounter requirements with this patient as dated. VETO VILLASEÑOR MD Jul 01, 2018 09:08
[2018-07-01] MEDS ORDERED: diphenhydrAMINE 50 MG/ML INJ (BENADRYL) IVP PRN (09:15)
[2018-07-01] MEDS ORDERED: ONDANSETRON 4 MG/2 ML (SDV) Z0FRAN IVP PRN ×2 (09:15→11:15)
[2018-07-01] MEDS ORDERED: morphine INJ 4 MG/ML 1 ML (VIAL/SYRINGE) IVP PRN (09:15)
[2018-07-01] MEDS ORDERED: oxyCODONE/APAP 5/325MG (PERCOCET 5) TABLET PO PRN (09:15)
[2018-07-01] MEDS ORDERED: ACETAMINOPHEN 325 MG TABLET PO PRN (09:15)
[2018-07-01] MEDS ORDERED: TRANEXAMIC ACID 100 MG/ML 10 ML INJECTION IV ONE (09:41)
[2018-07-01] MEDS ORDERED: GLYCOPYRROLATE 0.2 MG/ML (ROBINUL) 2 ML VIAL ONE (10:41)
[2018-07-01] MEDS ORDERED: NEOSTIGMINE 1 MG/ML 5 ML SYRINGE ONE (10:41)
[2018-07-01] MEDS ORDERED: HYDROmorphone 2 MG/ML VIAL (DILAUDID) IV ONE (11:15)
[2018-07-01] MEDS ORDERED: fentaNYL INJECTION 100 MCG/2 ML AMP IVP ONE (11:15)
[2018-07-01] MEDS ORDERED: HYDROmorphone 2 MG/ML VIAL (DILAUDID) ONE (11:25)
--- NOTE | 2018-07-01 11:34 | Diagnostic Imaging Report ---
INDICATION: Left total knee replacement. COMPARISON: None. FINDINGS: Two views of the left knee were obtained. Expected postoperative changes are seen from left knee total arthroplasty. Femoral and tibial components appear well-seated. There is no evidence of periprosthetic fracture. There is a small amount of subcutaneous emphysema in the soft tissues over the knee. Postsurgical drain is seen at the level of the patella. Skin juwan are seen centrally over the anterior aspect of the knee. No unexpected radiopaque foreign bodies are identified. IMPRESSION: Expected postsurgical changes from left knee total arthroplasty, as described above. No unexpected radiopaque foreign bodies. Dictated by: Dictated on workstation # [id number]
--- NOTE | 2018-07-01 11:50 | Progress Note-Standard ---
Standard Progress Note Progress Notes/Assess & Plan Date Seen by a Provider: Jul 01, 2018 Time Seen by a Provider: 11:46 Progress/Assessment & Plan post op check no complaints radiographs--HW well positioned without fracture LLE--2 plus DP pulse with brisk cap refill. Intact DF and PF of toes and ankle. sensation intact to light touch throughout s/p LTKA mobilize as able VETO VILLASEÑOR MD Jul 01, 2018 11:50
--- NOTE | 2018-07-01 12:15 | NUR ---
DAYO ZAMORA admitted to room 407-1, admitted from surgery after left total knee replacement, on 07/01/18 via bed, accompanied by staff and family ( present room during bedside report).DAYO ZAMORA introduced to surroundings, call light, bed controls, phone, TV, temperature control, lights, meal times, smoking policy, visitor policy, side rail policy, bathrooms and showers. Patient Rights given to patient in the handbook. DAYO ZAMORA verbalizes understanding that [facility] is not responsible for the loss or damage to any personal effects or valuables that are kept in the patients posession during their hospitalization. The following Patient Care Plans and discharge were discussed with the patient. DAYO ZAMORA verbalizes understanding of Interdisciplinary Patient Education.
[2018-07-01] MEDS ORDERED: ACETAMINOPHEN 500 MG TAB (TYLENOL) ONE (12:31)
[2018-07-01] MEDS ORDERED: NS IV 1000 ML 1,000 ML ONE (12:32)
[2018-07-01] MEDS: NS IV 1000 ML 1,000 ML IV SCH ×2 (12:42→21:19)
[2018-07-01] MEDS: ACETAMINOPHEN 500 MG TAB (TYLENOL) PO PRN ×2 (12:43→23:10)
[2018-07-01 13:30] VITALS: BP 186/81
--- NOTE | 2018-07-01 14:02 | OPERATIVE REPORT ---
DATE OF SERVICE: 07/01/2018 PREOPERATIVE DIAGNOSIS: Left knee primary osteoarthritis. POSTOPERATIVE DIAGNOSIS: Left knee primary osteoarthritis. PROCEDURE: Left total knee arthroplasty. SURGEON: Manolo Villaseñor MD. SEXUAL HEALTH PHYSICIAN: Austin Mullins, who assisted throughout the procedure and closed the incisions. ANESTHESIA: General endotracheal by Dr. Montemayor. TOURNIQUET TIME: Approximately 70 minutes at 300 mmHg. ESTIMATED BLOOD LOSS: Minimal. DRAINS: None. COMPLICATIONS: None. POSTOPERATIVE PLAN: Routine protocol. MATERIALS: MicroPort cemented size 5 femur, cemented size 4+ tibia with a 10 mm insert and cemented size 29 patellar button. The patient was transferred to the recovery room awake and stable condition. STATEMENT OF MEDICAL NECESSITY: The patient is a 73-year-old female with longstanding progressive left knee pain. Radiographs revealed severe patellofemoral arthritis with moderate medial arthritis. She had undergone treatment with injections, anti-inflammatories and rest without relief and due to functional impairment and failure to improve with conservative measures, the patient elected to proceed with surgical intervention. DESCRIPTION OF PROCEDURE: After the risks and benefits of the procedure were discussed and questions were answered and informed consent was signed and placed on chart, the operative site was confirmed in the preoperative holding area initialed by the surgeon. The patient was then transferred to the operating room and after adequate levels of general endotracheal anesthetic were obtained, a timeout was called confirming the operative site. Left lower extremity was prepped and draped in the usual sterile fashion with the leg elevated and the knee flexed, the tourniquet was inflated to 300 mmHg. A standard anterior approach was utilized. Hemostasis was obtained with the cautery. A medial parapatellar arthrotomy was performed leaving a 1 cm cuff on the patella for later reattachment. A portion of the fat pad was resected. The ACL was released. A subperiosteal release was performed on the proximal medial tibia being careful to stay on the bony surface. Intramedullary guide was passed into the femur. The distal cutting block was placed and the distal cut was made. The femur sized to a size 5. The 5 cutting block was placed parallel to the epicondylar axis and cuts were made from posterior to anterior. Subperiosteal release was then carefully performed of the posterior distal femur being careful to stay on the bony surface. Intramedullary guide was then passed into the tibia. The cutting block was placed. The drop ozzy transected the intramedullary access and the cut was made. The four plus baseplate was placed, pinned into position and then prepared with a drill and keel punch. The femoral trial was placed and the trochlear cut was made. A 10 mm insert was placed. The patella was then prepared by resecting 10 mm off the undersurface. The peg guide was placed and the peg holes were drilled. A 29 trial button was placed. The knee had full extension, 120 degrees of flexion against gravity was easily obtained. There was no anterior/posterior or medial/lateral laxity in the flexion or extension. The patella tracked well. The trials were removed. The joint was irrigated with a pulse lavage. The periarticular block was placed in the posterior capsule, medial and lateral retinaculum extensor mechanism as well as the subcutaneous tissue. The bone ends were irrigated and dried. The tibial baseplate was cemented into position. Excessive cement was removed. The tibial superior surface was irrigated and dried and the polyethylene insert was placed. The distal femur was irrigated and dried and the femoral prosthesis was cemented in position. Excessive cement was removed. The knee was brought into a full extension until the cement had cured. The undersurface of the patella was irrigated and dried. The patellar button was cemented into position. Excessive cement was removed. Once the cement had cured, the knee was taken through a range of motion, full extension was easily obtained, 125 degrees of flexion with gravity was easily obtained. There was no anterior/posterior or medial/lateral laxity in flexion or extension. The joint was further irrigated with the pulse lavage. The arthrotomy was closed with #2 Tevdek in [id number] interrupted fashion. The knee was flexed and the repair was found to be stable. The subcutaneous tissues were irrigated using a total of 6 liters throughout the procedure. A 0 Vicryl was used for the deep subcutaneous tissue, 2-0 Vicryl for the superficial subcutaneous tissue and juwan were used on the skin and a soft dressing was applied. The tourniquet was deflated and the patient was transferred to the recovery room awake and stable condition. Job ID: [id number] DocumentID: [id number] Dictated Date: 07/01/2018 11:12:26 Wheel And Caster Repairer Date: 07/01/2018 14:02:12 Dictated By: MANOLO VILLASEÑOR MD
--- NOTE | 2018-07-01 14:58 | Physical Therapy Evaluation ---
PT Evaluation-General Medical Diagnosis Admission Date Jul 01, 2018 at 07:33 Medical Diagnosis: L TKA Onset Date: Jul 01, 2018 Therapy Diagnosis Therapy Diagnosis: decreased ROM, decreased mobility, gait deviation Height/Weight Height (Feet): 5 Height (Inches): 6.00 Weight (Pounds): 206 Weight (Ounces): 7.0 Precautions Precautions/Isolations: Standard Precautions Weight Bear Status Right Lower Extremity: Right Full Weight Bearing Left Lower Extremity: Left Full Weight Bearing Referral Reason for Referral: Evaluation/Treatment Medical History Current History Pt admitted for elective left TKR. Reviewed History: Yes Social History Home: Multilevel Current Living Status: Spouse Entry Into Home: Stairs Without Railing PT Steps Into Home: 2 Prior/Core FIM Prior Level of Function Therapy Code Descriptions/Definitions Functional [place] Measure: 0=Not Assessed/NA 4=Minimal Assistance 1=Total Assistance 5=Supervision or Setup 2=Maximal Assistance 6=Modified [place] 3=Moderate Assistance 7=Complete [place] Therapy Quality Codes: 6 Independent with activity with or without an assistive device 5 Patient requires set up or clean up by helper. Patient completes activity by themselves 4 Supervision or touching assist (CGA). [place] provide cues , steadying assist 3 The helper provides less than half the effort to complete the activity 2 The helper provides more than half the effort to complete the activity 1 Dependent. The helper does all the effort to complete an activity 7 Patient refused to complete or attempt activity 9 The patient did not perform the activity before the current illness or injury 88 Not attempted due to Medical conditions or safety concerns Functional Abilities and Goals: Independent: Patient completed the activities by him/herself, with or without an assistive device, with no assistance from a helper. Needed Some Help: Patient needed partial assistance from another person to complete activities. Dependent: A helper completed the activities for the patient. Unknown: Not Applicable: Bed Mobility: 7 Transfers (B,C,W/C) (FIM): 7 Gait: 7 Stairs: 7 Indoor Mobility (Ambulation): Independent Stairs: Independent Prior Devices Use: None PT Evaluation-Current Subjective Pt in bed with in room and agrees to PT. Pt reports that she cannot feel her L foot but pain is okay. Pain Numeric Pain Scale: 2 Location: Left Location Body Site: Knee Pt/Family Goals Pt to return home with . Objective Patient Orientation: Person, Place, Situation, Normal For Age Problem Solving: Good Attachments: SCD's, Polar Pack, IV ROM/Strength ROM Lower Extremities RLE WNL LLE 65 flex +5 ext Strength Lower Extremities NT Integumentary/Posture Integumentary intact Bowel Incontinence: No Bladder Incontinence: No Neuromuscular (Tone, Coordination, Reflexes) WFL Sensory Vision: Wears Glasses Hearing: Functional Hand Dominance: Right Sensation Right Lower Extremit: Intact Sensation Left Lower Extremity: Impaired Transfers Therapy Code Descriptions/Definitions Functional [place] Measure: 0=Not Assessed/NA 4=Minimal Assistance 1=Total Assistance 5=Supervision or Setup 2=Maximal Assistance 6=Modified [place] 3=Moderate Assistance 7=Complete [place] Transfers (B, C, W/C) (FIM): 5 Scootin Rollin Supine to/from Sit: 5 Sit to/from Stand: 4 Gait Mode of Locomotion: Walk Anticipated Mode of Locomotion: Walk Gait (FIM): 1 Distance (FIM): 1=up to 49 ft Distance: 5' Gait Level of Assist: 4 Gait Persons Needed: 1 Gait Assistive Device: FWW Comments/Gait Description Pt barely bears any weight through LLE due to lack of sensation. Balance Sitting Static: Good Sitting Dynamic: Good Standing Static: Good Standing Dynamic: Fair Treatment Applied CPM 0-55 degrees Assessment/Needs Pt was able to perform supine LE ex of (HS, quad set, SAQ, and SLR) with min A of LLE. Pt was PROM of ankle due to lack of sensation and unable to perform AP. Pt was able to perform all bed mobility with SBA. Pt was min A-CGA during sit<> stand transfers from bed and commode to FWW. Pt was able to amb 5' with FWW and CGA bed to/from commode. Pt is now in bed with CPM set at 56 degrees flex and - 2 extension. Pt has all needs met. Rehab Potential: Good PT Short Term Goals Short Term Goals Time Frame: Jul 08, 2018 Transfers (B,C,W/C) (FIM): 6 Gait (FIM): 5 Distance (FIM): 6=654-02 ft Gait Distance Comment: 100' Gait Level of Assist: 5 Gait Assistive Device: FWW PT Plan Problem List Problem List: Activity Tolerance, Functional Strength, Safety, Balance, Gait, Transfer, Bed Mobility, ROM Treatment/Plan Treatment Plan: Continue Plan of Care Treatment Plan: Bed Mobility, Education, Functional Activity Rad, Functional Strength, Gait, Safety, Therapeutic Exercise, Transfers Treatment Duration: Jul 08, 2018 Frequency: 6 times per week Estimated Hrs Per Day: .25 hour per day (15-30 min) Patient and/or Family Agrees t: Yes Safety Risks/Education Patient Education: Gait Training, Transfer Techniques, Steps, Correct Positioning, Safety Issues Teaching Recipient: Patient, Family Teaching Methods: Demonstration, Discussion Discharge Recommendations Therapy D/C Recommendations: Home w/ Family Support Equpiment Recommendations-D/C: Front Wheeled Walker Time/GCodes Time In: 1400 Time Out: 1434 Total Billed Treatment Time: 34 Total Billed Treatment 1 visit EVL 14 min EX 20 min HALIE BARRIENTOS PT Jul 01, 2018 14:58
[2018-07-01 16:00] VITALS: BP 167/78
[2018-07-01] MEDS ORDERED: ARTIFICAL TEARS 0.4 ML UNIT DOSE (REFRESH PLUS) ONE (16:45)
[2018-07-01] MEDS: CEFUROXIME INJECTION 750 MG in WATER (STERILE) FOR INJECTION 10 ML IV SCH (16:50)
[2018-07-01] MEDS ORDERED: IBUPROFEN 800 MG (MOTRIN) TAB PO ONE (17:15)
[2018-07-01] MEDS: IBUPROFEN 800 MG (MOTRIN) TAB PO PRN (17:20)
[2018-07-01] MEDS ORDERED: IBUPROFEN 800 MG (MOTRIN) TAB PO SCH (18:00)
[2018-07-01 20:00] VITALS: BP 168/87
[2018-07-01] MEDS: SENNA W/DOCUSATE (SENOKOT S) TABLET PO SCH (21:19)
[2018-07-02] VITALS (7 sets, daily range): BP systolic 160–193; BP diastolic 78–97
[2018-07-02] MEDS: CEFUROXIME INJECTION 750 MG in WATER (STERILE) FOR INJECTION 10 ML IV SCH (00:48)
[2018-07-02] MEDS: IBUPROFEN 800 MG (MOTRIN) TAB PO PRN ×3 (04:07→23:32)
[2018-07-02] MEDS: MULTIVIT W/MINERALS TAB (THERAGRAN M) PO SCH (06:27)
--- NOTE | 2018-07-02 07:35 | Progress Note-Standard ---
Standard Progress Note Progress Notes/Assess & Plan Date Seen by a Provider: Jul 02, 2018 Time Seen by a Provider: 07:34 Progress/Assessment & Plan post op check no complaints radiographs--HW well positioned without fracture LLE--2 plus DP pulse with brisk cap refill. Intact DF and PF of toes and ankle. sensation intact to light touch throughout s/p LTKA mobilize as able Final Diagnosis no complaints Vital Signs Date Time Temp Pulse Resp B/P (MAP) Pulse Ox O2 Delivery O2 Flow Rate FiO2 07/02/18 04:00 97.2 64 18 190/78 (115) 95 Room Air 07/02/18 00:00 97.4 70 16 160/86 (110) 95 Room Air 07/01/18 21:00 Room Air 07/01/18 20:00 97.7 74 20 168/87 (114) 91 Room Air 07/01/18 16:00 96.6 69 18 167/78 (107) 98 Room Air 07/01/18 13:30 97.2 55 16 186/81 (116) 96 Room Air I & O 07/02/18 07:00 Intake Total 3005 ml Output Total 1750 ml Balance 1255 ml Laboratory Tests Test 07/02/18 05:20 Range/Units Hemoglobin 12.0 11.5-16.0 G/DL Hematocrit 36 35-52 % LLE--NVI distally. No calf tenderness s/p LTKA PT/OT VETO VILLASEÑOR MD Jul 02, 2018 07:35
[2018-07-02] MEDS: ACETAMINOPHEN 500 MG TAB (TYLENOL) PO PRN (08:51)
[2018-07-02] MEDS: ASPIRIN E.C. 81 MG (ECOTRIN) TAB PO SCH (08:53)
[2018-07-02] MEDS: ENOXAPARIN 30 MG/0.3 ML (LOVENOX) SYR SC SCH ×2 (08:54→20:25)
[2018-07-02] MEDS: SENNA W/DOCUSATE (SENOKOT S) TABLET PO SCH ×2 (08:57→21:00)
--- NOTE | 2018-07-02 09:35 | Physical Therapy Daily Note ---
PT Daily Note-Current Subjective Pt in bed and agrees to PT. Requests that she use the commode before beginning exercise. Pain Numeric Pain Scale: 10-Worst Possible Pain Location: Left Location Body Site: Knee Mental Status Patient Orientation: Person, Place, Situation, Normal For Age Attachments: SCD's Transfers Therapy Code Descriptions/Definitions Functional [place] Measure: 0=Not Assessed/NA 4=Minimal Assistance 1=Total Assistance 5=Supervision or Setup 2=Maximal Assistance 6=Modified [place] 3=Moderate Assistance 7=Complete [place] Therapy Quality Codes: 6 Independent with activity with or without an assistive device 5 Patient requires set up or clean up by helper. Patient completes activity by themselves 4 Supervision or touching assist (CGA). [place] provide cues , steadying assist 3 The helper provides less than half the effort to complete the activity 2 The helper provides more than half the effort to complete the activity 1 Dependent. The helper does all the effort to complete an activity 7 Patient refused to complete or attempt activity 9 The patient did not perform the activity before the current illness or injury 88 Not attempted due to Medical conditions or safety concerns Transfers (B, C, W/C) (FIM): 4 Scootin Supine to/from Sit: 5 Sit to/from Stand: 4 Weight Bearing Right Lower Extremity: Right Full Weight Bearing Left Lower Extremity: Left Full Weight Bearing Gait Training Gait (FIM): 2 Distance (FIM): 6=644-76 ft Distance: 125' Gait Level of Assist: 4 Gait Persons Needed: 1 Gait Assistive Device: FWW Antalgic gait. Step to pattern with 50% WB on LLE. Exercises Supine Ex: Ankle pumps, Quad Set, Heel Slides, Short Arc Quads, Straight leg raise Supine Reps: 10 Assessment Current Status: Fair Progress Pt was able to perform bed mobility with SBA and transfers with CGA from sit<> stand to FWW. Pt able to perform bathroom skills indep. Pt was able to amb with CGA and FWW 125'. Pt returned to bed and performed supine LE ex. Pt is now on CPM at flex 64 and ext -2. Pt is in bed and has all needs met. PT Short Term Goals Short Term Goals Time Frame: Jul 08, 2018 Transfers (B,C,W/C) (FIM): 6 Gait (FIM): 5 Distance (FIM): 0=615-71 ft Gait Distance Comment: 100' Gait Level of Assist: 5 Gait Assistive Device: FWW PT Plan Problem List Problem List: Activity Tolerance, Functional Strength, Safety, Balance, Gait, Transfer, Bed Mobility, ROM Treatment/Plan Treatment Plan: Continue Plan of Care Treatment Plan: Bed Mobility, Education, Functional Activity Rad, Functional Strength, Gait, Safety, Therapeutic Exercise, Transfers Treatment Duration: Jul 08, 2018 Frequency: 6 times per week Estimated Hrs Per Day: .25 hour per day (15-30 min) Patient and/or Family Agrees t: Yes Discharge Recommendations Equpiment Recommendations-D/C: Front Wheeled Walker Time/GCodes Time In: 820 Time Out: 845 Total Billed Treatment Time: 25 Total Billed Treatment 1 visit GT 15 min EX 10 min SYDNEY CASTILLO PT Jul 02, 2018 09:35
[2018-07-02] MEDS ORDERED: fentaNYL INJECTION 100 MCG/2 ML AMP ONE (09:50)
--- NOTE | 2018-07-02 10:07 | Anesthesia-Regional Post-Op ---
Regional Patient Condition Mental Status: Alert, Oriented x3 Circulation: Same as Pre-Op Headache: Absent Sensation: Full Recovery Motor Block: Absent Post Op Complications Complications None Follow Up Care/Instructions Patient Instructions None needed. Anesthesia/Patient Condition Patient is doing well, no complaints, stable vital signs, no apparent adverse anesthesia problems. No complications reported per nursing. JUDI FRAGA CRNA Jul 02, 2018 10:07
--- NOTE | 2018-07-02 10:07 | Anesthesia-General Post-Op ---
General Patient Condition Mental Status/LOC: Same as Preop Cardiovascular: Satisfactory Nausea/Vomiting: Absent Respiratory: Satisfactory Pain: Controlled Complications: Absent Post Op Complications Complications None Follow Up Care/Instructions Patient Instructions None needed. Anesthesia/Patient Condition Patient Condition Patient is doing well, no complaints, stable vital signs, no apparent adverse anesthesia problems. No complications reported per nursing. JUDI FRAGA CRNA Jul 02, 2018 10:06
[2018-07-02] MEDS: NS IV 1000 ML 1,000 ML IV SCH (10:34)
--- NOTE | 2018-07-02 12:44 | NUR ---
CM/SS, respond to referral. HHC: Coordinated with patient preferred agency, [facility], for PT services. DME: Patient has a FWW for home use. No other needs identified by patient.
[2018-07-02] MEDS: HYDROmorphone 2 MG/ML VIAL (DILAUDID) IV PRN ×2 (13:06→16:57)
--- NOTE | 2018-07-02 13:30 | Physical Therapy Daily Note ---
PT Daily Note-Current Subjective Pt was in bed and agreed to PT. Reports that after this mornings tx that she was in so much pain she was shaking. Nurse was able to give her a 1/2 a dose of pain medication. Nurse is now giving her the other half. Pain Numeric Pain Scale: 5-Moderate Pain Location: Left Location Body Site: Knee Mental Status Patient Orientation: Person, Place, Situation, Normal For Age Transfers Therapy Code Descriptions/Definitions Functional [place] Measure: 0=Not Assessed/NA 4=Minimal Assistance 1=Total Assistance 5=Supervision or Setup 2=Maximal Assistance 6=Modified [place] 3=Moderate Assistance 7=Complete [place] Therapy Quality Codes: 6 Independent with activity with or without an assistive device 5 Patient requires set up or clean up by helper. Patient completes activity by themselves 4 Supervision or touching assist (CGA). [place] provide cues , steadying assist 3 The helper provides less than half the effort to complete the activity 2 The helper provides more than half the effort to complete the activity 1 Dependent. The helper does all the effort to complete an activity 7 Patient refused to complete or attempt activity 9 The patient did not perform the activity before the current illness or injury 88 Not attempted due to Medical conditions or safety concerns Transfers (B, C, W/C) (FIM): 5 Scootin Supine to/from Sit: 7 Sit to/from Stand: 5 Weight Bearing Right Lower Extremity: Right Full Weight Bearing Left Lower Extremity: Left Full Weight Bearing Gait Training Gait (FIM): 2 Distance (FIM): 9=283-20 ft Distance: 100' Gait Level of Assist: 4 Gait Persons Needed: 1 Gait Assistive Device: FWW Pt amb a step to pattern with antalgic gait. Exercises Supine Ex: Ankle pumps, Quad Set, Heel Slides, Short Arc Quads, Straight leg raise Supine Reps: 10 Assessment Current Status: Good Progress, Fair Progress Pt was able to perform supine LE ex with min A of LLE. Pt was able to perform bed mobility indep. Pt transfers sit<>stand with FWW and CGA. Pt was able to amb 100' with FWW and CGA. Pt reported that she was feeling dizzy during amb. Pt is now in recliner with all needs met. PT Short Term Goals Short Term Goals Time Frame: Jul 08, 2018 Transfers (B,C,W/C) (FIM): 6 Gait (FIM): 5 Distance (FIM): 3=989-34 ft Gait Distance Comment: 100' Gait Level of Assist: 5 Gait Assistive Device: FWW PT Plan Problem List Problem List: Activity Tolerance, Functional Strength, Safety, Balance, Gait, Transfer, Bed Mobility, ROM Treatment/Plan Treatment Plan: Continue Plan of Care Treatment Plan: Bed Mobility, Education, Functional Activity Rad, Functional Strength, Gait, Safety, Therapeutic Exercise, Transfers Treatment Duration: Jul 08, 2018 Frequency: 6 times per week Estimated Hrs Per Day: .25 hour per day (15-30 min) Patient and/or Family Agrees t: Yes Time/GCodes Time In: 1258 Time Out: 1321 Total Billed Treatment Time: 23 Total Billed Treatment 1 visit EX 13 min GT 10 min SYDNEY CASTILLO PT Jul 02, 2018 13:30
--- NOTE | 2018-07-02 14:42 | Occupational Therapy Eval ---
OT Evaluation-General/PLF Medical Diagnosis Admission Date Jul 01, 2018 at 07:33 Medical Diagnosis: L TKA Onset Date: Jul 01, 2018 Therapy Diagnosis Therapy Diagnosis: Weakness Height/Weight Height (Feet): 5 Height (Inches): 6.00 Weight (Pounds): 206 Weight (Ounces): 7.0 Precautions Precautions/Isolations: Fall Prevention, Standard Precautions Safety Interventions: None Weight Bear Status Weight Bearing Restriction: Weight Bearing/Tolerated Location Restriction: L LE WBAT Referral Physician: Manolo Arciniega Referral Reason: Activity Tolerance, Self Care, Evaluation/Treatment, Strengthening/ROM Medical History Pertinent Medical History: OA Current History Pt had gone Left knee surgery for Total Knee Arthroplasty , Pt WBAT , Reviewed History: Yes Social History Home: Multilevel Current Living Status: Spouse Entry Into Home: Stairs Without Railing Steps Into Home: 2 ADL-Prior Level of Function Therapy Code Descriptions/Definitions Functional [place] Measure: 0=Not Assessed/NA 4=Minimal Assistance 1=Total Assistance 5=Supervision or Setup 2=Maximal Assistance 6=Modified [place] 3=Moderate Assistance 7=Complete [place] Therapy Quality Codes: 6 Independent with activity with or without an assistive device 5 Patient requires set up or clean up by helper. Patient completes activity by themselves 4 Supervision or touching assist (CGA). [place] provide cues , steadying assist 3 The helper provides less than half the effort to complete the activity 2 The helper provides more than half the effort to complete the activity 1 Dependent. The helper does all the effort to complete an activity 7 Patient refused to complete or attempt activity 9 The patient did not perform the activity before the current illness or injury 88 Not attempted due to Medical conditions or safety concerns Functional Abilities and Goals: Independent: Patient completed the activities by him/herself, with or without an assistive device, with no assistance from a helper. Needed Some Help: Patient needed partial assistance from another person to complete activities. Dependent: A helper completed the activities for the patient. Unknown: Not Applicable: Self Care: Independent Functional Cognition: Independent DME/Equipment: Grab Bars, Shower, Toilet/Riser Drive Self: Yes OT Current Status Subjective Pt in chair, in cheerful mood with . ,'Pt states that she is doing great. " Agree for OT Eval & Tx. Pain Numeric Pain Scale: 3 Location: Left Location Body Site: Knee Pain Description: Ache, Dull Mental Status/Objective Patient Orientation: Person, Place, Time, Situation Attachments: Polar Pack, Saline Lock, SCD's Current Glasses/Contacts: Yes Hearing Aids: No Hand Dominance: Right Upper Extremity ROM Intact Upper Extremity Coordination Intact Upper Extremity Sensation Intact Upper Extremity Strength MS in BUE -4/5 grossly graded. ADL-Treatment ADL-Current Pt needs Min A in LB dressing with stationary engineer apprentice , Independent in UB dressing garments , SBA in sit to stand & CGA during ambulation with FWW using gait belt. SBA in bed mobility. MS in BUE -4/5 grossly graded. Fatigue soon. Therapy Code Descriptions/Definitions Functional [place] Measure: 0=Not Assessed/NA 4=Minimal Assistance 1=Total Assistance 5=Supervision or Setup 2=Maximal Assistance 6=Modified [place] 3=Moderate Assistance 7=Complete [place] Therapy Quality Codes: 6 Independent with activity with or without an assistive device 5 Patient requires set up or clean up by helper. Patient completes activity by themselves 4 Supervision or touching assist (CGA). [place] provide cues , steadying assist 3 The helper provides less than half the effort to complete the activity 2 The helper provides more than half the effort to complete the activity 1 Dependent. The helper does all the effort to complete an activity 7 Patient refused to complete or attempt activity 9 The patient did not perform the activity before the current illness or injury 88 Not attempted due to Medical conditions or safety concerns Eating (FIM): 7 Grooming (FIM): 7 Upper Body Dressing (FIM): 7 Lower Body Dressing (FIM): 4 Toileting (FIM): 5 Transfers (B, C, W/C) (FIM): 5 Toilet/Commode Transfer (FIM): 5 Education OT Patient Education: Correct positioning, Instructions to caregiver, Purpose of tx/functional activities, Safety issues, Use of adapted equipment Teaching Recipient: Patient Teaching Methods: Demonstration Response to Teaching: Verbalize Understanding, Return Demonstration OT Short Term Goals Short Term Goals Time Frame: Jul 16, 2018 Eating(FIM): 7 Grooming(FIM): 7 Bathing(FIM): 5 Bathing Location: L Arm, R Arm, L Upper Leg, R Upper Leg, L Lower Leg ( including foot), R Lower Leg (including foot), Chest, Abdomen, Buttocks, Perineal Area Upper Body Dressing(FIM): 7 Lower Body Dressing(FIM): 6 Toileting(FIM): 7 Transfers (B,C,W/C) (FIM): 6 Toilet/Commode Transfer(FIM): 6 Shower Transfer(FIM): 7 Additional Short Term Goals: 1-Demonstrate ADL Tasks, 2-Verbalize Understanding , 3-ImproveStrength/Rad 1=Demonstrate adherence to instructed precautions during ADL tasks. 2=Patient will verbalize/demonstrate understanding of assistive devices/ modifications for ADL. 3=Patient will improve strength/tolerance for activity to enable patient to perform ADL's. OT Skilled Nursing Goals Skilled Nursing Goals Time Frame: Jul 30, 2018 Eating (FIM): 7 Grooming(FIM): 7 Bathing(FIM): 6 Bathing Location: L Arm, R Arm, L Upper Leg, R Upper Leg, L Lower Leg ( including foot), R Lower Leg (including foot), Chest, Abdomen, Buttocks, Perineal Area Upper Body Dressing(FIM): 7 Lower Body Dressing(FIM): 7 Toileting(FIM): 7 Transfers (B,C,W/C) (FIM): 7 Toilet/Commode Transfer(FIM): 7 Tub Transfer(FIM): 7 Shower Transfer(FIM): 7 Additional Goals: 1-Demonstrate ADL Tasks, 2-Verbalize Understanding, 3- ImproveStrength/Rad 1=Demonstrate adherence to instructed precautions during ADL tasks. 2=Patient will verbalize/demonstrate understanding of assistive devices/ modifications for ADL. 3=Patient will improve strength/tolerance for activity to enable patient to perform ADL's. OT Education/Plan Problem List/Assessment Assessment: Decreased Activ Tolerance, Decreased Safety Aware, Decreased UE Strength, Dependent Transfers, Impaired Bed Mobility, Impaired Cognition, Impaired Funct Balance, Impaired Self-Care Skills Discharge Recommendations Plan/Recommendations: Continue POC Therapy D/C Recommendations: Home w/ Family Support Equpiment Recommendations-D/C: Extended Bath Bench, Extended Shower Sprayer, Sixth Grade Teacher Patient/Family Goals To return home with spouse Independently with AD. Treatment Plan/Plan of Care Treatment,Training & Education: Yes Patient would benefit from OT for education, treatment and training to promote independence in ADL's, mobility, safety and/or upper extremity function for ADL' s. Plan of Care: ADL Retraining, Caregiver Training, Functional Mobility, UE Funct Exercise/Act, UE Neuromus Re-Ed/Coord Treatment Duration: Jul 30, 2018 Frequency: 5 times per week Estimated Hrs Per Day: .5 hour per day Rehab Potential: Good Time/GCodes Start Time: 14:00 Stop Time: 14:30 Total Time Billed (hr/min): 30 Billed Treatment Time 1, EVM 19 min, FA 11 min. Total 30 minutes DONALD RODRIGUEZ OT Jul 02, 2018 14:41
--- NOTE | 2018-07-02 19:39 | Consultation ---
History of Present Illness History of Present Illness Patient Consulted On(moshe/time) 07/02/18 19:34 Date Seen by Provider: Jul 02, 2018 Time Seen by Provider: 19:10 Reason for Visit: left knee replacement History of Present Illness PT IS A 73 Y/O FEMALE WHO IS KNOWN TO ME FROM CLINIC. SHE STATES THAT SHE HAD A LOT OF PAIN TODAY WHEN THE PAIN BLOCK WORE OFF AND SHE WAS TRYING TO BE TOUGH AND NOT ASK FOR MORE THAN THE TYLENOL. HER NURSE STATES THAT SHE FINALLY CONVINCED DAYO TO TAKE A PARTIAL DOSE OF ORAL DILAUDID FOR PAIN CONTROL AND THIS EVENING SHE REPORTS THAT HER PAIN IS MUCH BETTER. Allergies and Home Medications Allergies Coded Allergies: codeine (Verified Allergy, Severe, RACING HEART, 06/24/18) hydrocodone (Verified Allergy, Severe, "HEART RACES, FEEL LIKE I CAN'T BREATHE", 07/01/18) oxycodone (Verified Allergy, Severe, "HEART RACES, FEEL LIKE I CAN'T BREATHE", 07/01/18) Sulfa (Sulfonamide Antibiotics) (Verified Allergy, Mild, "DOES NOT WORK", 06/24/18) ciprofloxacin (Verified Allergy, Unknown, PT REFUSES TO TAKE, 06/24/18) Home Medications Ascorbic Acid 250 Mg Tab, 500 MG PO DAILY, (Reported) take 2 (250mg) tabs Calcium Carbonate/Vitamin D3 1 Each Tablet, 2 TAB PO DAILY, (Reported) Cranberry Extract 500 Mg Tablet, 1,000 MG PO DAILY, (Reported) take 2 (500mg) tabs D-Mannose 50 Gm Powder, 5 ML PO BID, (Reported) Estradiol 42.5 Gm Cream.appl, 0.1 GM VG twice a week, (Reported) Fexofenadine HCl 180 Mg Tablet, 180 MG PO DAILY, (Reported) Lisinopril 5 Mg Tablet, 5 MG PO DAILY, (Reported) Multivit/Iron/FA/K/Herb No.244 1 Each Tablet, 1 EACH PO DAILY, (Reported) Oxycodone HCl/Acetaminophen 1 Each Tablet, 1 TAB PO Q4H Prescribed by: VETO VILLASEÑOR on 07/01/18 0906 Potassium Gluconate 99 Mg Tablet, 99 MG PO DAILY, (Reported) Vit C/Vit E/Lutein/Min/[place]-3 1 Each Capsule, 1 EACH PO DAILY, (Reported) Vitamin B Complex & Vit C No.3 1 Each Capsule, 1 EACH PO DAILY, (Reported) Vitamin C/Biotin 1 Each Tab.chew, 1 EACH PO DAILY, (Reported) [Iodine T8] , 1 TAB PO BID, (Reported) [curamin] , 1 TAB PO DAILY, (Reported) [magnesium 2T calm] , 1 TAB PO DAILY, (Reported) Patient Home Medication List Home Medication List Reviewed: Yes Past Sqvzjkp-Pdhkdn-Vbiqfz Hx Past Med/Social Hx: Reviewed Nursing Past Med/Soc Hx Patient Social History Alcohol Use: Denies Use 2nd Hand Smoke Exposure: No Recent Foreign Travel: No Contact w/Someone Who Travel: No Recent Infectious Disease Expo: No Recent Hopitalizations: No Immunizations Up To Date Date of Pneumonia Vaccine: Mar 27, 2014 Date of Influenza Vaccine: Mar 02, 2018 Seasonal Allergies Seasonal Allergies: Yes Past Medical History Surgeries: Yes (A&P REPAIR, R TKR, TOE SX, R KNEE SCOPE) Hysterectomy, Tonsillectomy Respiratory: No Cardiac: Yes Hypertension Neurological: No Sexually Transmitted Disease: No HIV/AIDS: No Genitourinary: Yes UTI-Chronic Gastrointestinal: Yes Chronic Constipation Musculoskeletal: Yes (HAMMERTOES) Arthritis Endocrine: Yes (STATES "THYROID IS SLUGGISH", TAKES OTC SUPPLEMENT) HEENT: Yes (GLASSES, PARTIAL DENTURES) Loss of Vision: Bilateral Hearing Impairment: Denies Cancer: No Psychosocial: No Integumentary: No Blood Disorders: No Adverse Reaction/Blood Tranf: No (N/A) Family Medical History Reviewed Nursing Family Hx Arthritis Asthma Cardiovascular disease Cataracts Deafness or hearing loss Glaucoma Hypercholesterolemia Hypertension Myocardial infarction Respiratory disorder Thyroid disease Visual disorder Review of Systems-General Constitutional: No chills, No dizziness, No fever, No malaise, No weakness EENTM: No hoarseness, No throat pain Respiratory: No cough, No dyspnea on exertion, No short of breath Cardiovascular: No chest pain; edema; No palpitations Gastrointestinal: No abdominal pain; constipation Genitourinary: no symptoms reported Musculoskeletal: other (LEFT KNEE PAIN) Skin: no symptoms reported All Other Systems Reviewed Negative Unless Noted: Yes Physical Exam-General Problems Physical Exam Vital Signs Vital Signs - First Documented 07/01/18 07:35 Temp 98.0 Pulse 80 Resp 16 B/P (MAP) 145/98 Pulse Ox 94 O2 Delivery Room Air Capillary Refill : General Appearance: WD/WN Eyes: Bilateral Eye Normal Inspection, Bilateral Eye PERRL, Bilateral Eye EOMI HEENT: PERRL/EOMI, pharynx normal Neck: non-tender, full range of motion, supple, normal inspection Respiratory: chest non-tender, lungs clear, normal breath sounds, no respiratory distress Cardiovascular: regular rate, rhythm Gastrointestinal: normal bowel sounds, non tender, soft, no organomegaly, no pulsatile mass Extremities: normal capillary refill, other (DRESSING ON LEFT KNEE C/D/I, COMPRESSION SOCKS ON BILATERAL LOWER EXTREMITIES WITH FOOT SCD'S IN PLACE) Neurologic/Psychiatric: taper printed circuit layout II-XII nml as tested, no motor/sensory deficits, alert, normal mood/affect, oriented x 3 Skin: warm/dry Lymphatic: no adenopathy Assessment/Plan Assessment/Plan Admission Diagnosis/Plan LEFT KNEE ARTHRITIS LEFT KNEE REPLACEMENT HYPERTENSION UNCONTROLLED PAIN CONSTIPATION LEFT KNEE ARTHRITIS - STATUS POST LEFT KNEE REPLACEMENT ON 07/01/18 - CONTINUE WITH PHYSICAL THERAPY, PAIN CONTROL WITH ORAL DILAUDID AND TYLENOL. AGREE WITH PLANS FOR DISCHARGE ON FRIDAY OR FRIDAY DEPENDING ON PT'S ABILITY TO AMBULATE AND PAIN CONTROL. HYPERTENSION - UNCONTROLLED - DOSE OF LISINOPRIL 10MG PO NOW AND 5MG IN MORNING , WHEN PAIN IS IMPROVED, HER USUAL DOSE OF LISINOPRIL SHOULD CONTROL HER BLOOD PRESSURE MORE EFFECTIVELY. UNCONTROLLED PAIN - CONTINUE WITH TYLENOL AND DILAUDID. CONSTIPATION - PT ON MAGNESIUM, SHE DID NOT WANT ADDITIONAL MEDICATION TONIGHT. THANK YOU FOR THE CONSULT Admission Status: Inpatient Order (span 2 midnights) Reason for Inpatient Admission: LEFT KNEE REPLACEMENT WILL REQUIRE MORE THAN TWO MIDNIGHTS RECOVERY TIME IN HOSPITAL Clinical Quality Measures DVT/VTE Risk/Contraindication: Risk Factor Score Per Nursin RFS Level Per Nursing on Admit: 4+=Very High LUPE HOLMAN MD Jul 02, 2018 19:39
[2018-07-02] MEDS ORDERED: lisINopril 10 MG (PRINIVIL) TABLET PO NR (19:45)
[2018-07-02] MEDS: HYDROmorphone (DILAUDID) 4 MG TAB PO PRN (20:25)
[2018-07-02] MEDS ORDERED: ONDANSETRON 8 MG (ZOFRAN) ORAL DISSOLVE TAB PO PRN (20:45)
[2018-07-03 00:20] VITALS: BP 179/84
[2018-07-03] MEDS: HYDROmorphone (DILAUDID) 4 MG TAB PO PRN ×3 (00:29→12:25)
[2018-07-03] MEDS: ACETAMINOPHEN 500 MG TAB (TYLENOL) PO PRN (03:19)
[2018-07-03 04:00] VITALS: BP 157/83
--- NOTE | 2018-07-03 04:35 | DISCHARGE SUMMARY ---
DATE OF SERVICE: DIAGNOSES: 1. Left knee primary osteoarthritis. 2. Hypertension. PROCEDURE: Left total knee arthroplasty. SUMMARY: The patient is a 73-year-old female, who underwent left total knee arthroplasty on the day of admission. Postoperatively, she did very well. She attained independent status with physical therapy. She was tolerating diet well and tolerating pain with oral pain medication. The wound was clean and dry. She had no calf tenderness. Negative Homans sign. CONDITION AT DISCHARGE: Good. DISCHARGE DIET: Regular. FOLLOWUP: Follow up is in three weeks. Home physical therapy has been arranged. Job ID: [id number] DocumentID: [id number] Dictated Date: 07/02/2018 20:00:24 Veterinary Toxicologist Date: 07/03/2018 04:34:35 Dictated By: VETO VILLASEÑOR MD
[2018-07-03 05:55] LABS: HEMOGLOBIN 11.6 G/DL (11.5-16.0)
--- NOTE | 2018-07-03 07:07 | Progress Note-Standard ---
Standard Progress Note Progress Notes/Assess & Plan Date Seen by a Provider: Jul 03, 2018 Time Seen by a Provider: 07:06 Progress/Assessment & Plan post op check no complaints radiographs--HW well positioned without fracture LLE--2 plus DP pulse with brisk cap refill. Intact DF and PF of toes and ankle. sensation intact to light touch throughout s/p LTKA mobilize as able Final Diagnosis no complaints Vital Signs Date Time Temp Pulse Resp B/P (MAP) Pulse Ox O2 Delivery O2 Flow Rate FiO2 07/03/18 04:00 98.3 60 20 157/83 (107) 95 Room Air 07/03/18 00:20 98.2 72 18 179/84 (115) 97 Room Air 07/02/18 20:20 97.2 67 18 193/97 (129) 96 Room Air 07/02/18 20:15 Room Air 07/02/18 17:02 60 168/78 (108) 07/02/18 16:01 97.3 61 18 183/93 (123) 95 Room Air 07/02/18 12:00 98.4 58 18 172/78 (109) 96 Room Air 07/02/18 09:00 Room Air 07/02/18 08:00 97.7 78 18 162/84 (110) 100 Room Air I & O 07/03/18 07:00 Intake Total 1530 ml Output Total 900 ml Balance 630 ml Laboratory Tests Test 07/03/18 05:35 Range/Units Hemoglobin 11.6 11.5-16.0 G/DL Hematocrit 36 35-52 % LLE--incision clean and dry. No calf tenderness. Neg Judith's s/p LTKA doing well DC home today VETO VILLASEÑOR MD Jul 03, 2018 07:07
[2018-07-03 08:00] VITALS: BP 144/81
[2018-07-03] MEDS: MULTIVIT W/MINERALS TAB (THERAGRAN M) PO SCH (08:48)
[2018-07-03] MEDS: ASPIRIN E.C. 81 MG (ECOTRIN) TAB PO SCH (08:49)
[2018-07-03] MEDS: SENNA W/DOCUSATE (SENOKOT S) TABLET PO SCH (08:49)
[2018-07-03] MEDS: ENOXAPARIN 30 MG/0.3 ML (LOVENOX) SYR SC SCH (08:49)
[2018-07-03] MEDS: IBUPROFEN 800 MG (MOTRIN) TAB PO PRN (08:55)
[2018-07-03] MEDS ORDERED: lisINopril 5 MG (PRINIVIL) TABLET PO SCH (09:00)
--- NOTE | 2018-07-03 09:10 | Physical Therapy Daily Note ---
PT Daily Note-Current Subjective Pt in bed and agrees to PT. Reports the pain is still bad but not as bad as yesterday. Pain Numeric Pain Scale: 8 Location: Left Location Body Site: Knee Mental Status Patient Orientation: Person, Place, Situation, Normal For Age Transfers Therapy Code Descriptions/Definitions Functional [place] Measure: 0=Not Assessed/NA 4=Minimal Assistance 1=Total Assistance 5=Supervision or Setup 2=Maximal Assistance 6=Modified [place] 3=Moderate Assistance 7=Complete [place] Therapy Quality Codes: 6 Independent with activity with or without an assistive device 5 Patient requires set up or clean up by helper. Patient completes activity by themselves 4 Supervision or touching assist (CGA). [place] provide cues , steadying assist 3 The helper provides less than half the effort to complete the activity 2 The helper provides more than half the effort to complete the activity 1 Dependent. The helper does all the effort to complete an activity 7 Patient refused to complete or attempt activity 9 The patient did not perform the activity before the current illness or injury 88 Not attempted due to Medical conditions or safety concerns Transfers (B, C, W/C) (FIM): 5 Scootin Supine to/from Sit: 6 Sit to/from Stand: 5 Weight Bearing Right Lower Extremity: Right Full Weight Bearing Left Lower Extremity: Left Full Weight Bearing Gait Training Gait (FIM): 6 Distance (FIM): 3=150 ft Distance: 300' Gait Level of Assist: 6 Gait Persons Needed: 1 Gait Assistive Device: FWW Pt utilizes a step to pattern during amb. Pt was able to increase close to a reciprocal pattern. Stair Training Stair Training: Handrails/: 1 handrail, uses walker Stairs (FIM): 2 #of Steps: 2 Stairs: Pattern: Step to Level of Assist: 4 Pt was able to perform stair training well and reports that she feels comfortable with ascending/descending steps at home now. Exercises Supine Ex: Ankle pumps, Quad Set, Heel Slides, Short Arc Quads, Straight leg raise Supine Reps: 10 Assessment Current Status: Good Progress Pt was able to perform supine LE ex with contact assist. Pt is able to transfer and perform bed mobility indep. Pt amb 300' with FWW. Pt at end of tx reports that she feels fatigued and nauseous due to pain. Pt is now in bed with all needs met. Pt will need social services manager to issue a walker to her before she is able to dismiss. PT Short Term Goals Short Term Goals Time Frame: Jul 08, 2018 Transfers (B,C,W/C) (FIM): 6 Gait (FIM): 5 Distance (FIM): 1=929-68 ft Gait Distance Comment: 100' Gait Level of Assist: 5 Gait Assistive Device: FWW PT Plan Problem List Problem List: Activity Tolerance, Functional Strength, Safety, Balance, Gait, Transfer, ROM Treatment/Plan Treatment Plan: Continue Plan of Care Treatment Plan: Bed Mobility, Education, Functional Activity Rad, Functional Strength, Gait, Safety, Therapeutic Exercise, Transfers Treatment Duration: Jul 08, 2018 Frequency: 6 times per week Estimated Hrs Per Day: .25 hour per day (15-30 min) Patient and/or Family Agrees t: Yes Discharge Recommendations Equpiment Recommendations-D/C: Front Wheeled Walker Time/GCodes Time In: 818 Time Out: 848 Total Billed Treatment Time: 30 Total Billed Treatment 1 visit GT 15 min EX 15 min SYDNEY CASTILLO PT Jul 03, 2018 09:10
--- NOTE | 2018-07-03 10:13 | Progress Note ---
Subjective Date Seen by a Provider: Jul 03, 2018 Time Seen by a Provider: 10:13 Objective Exam Last Set of Vital Signs Vital Signs Date Time Temp Pulse Resp B/P (MAP) Pulse Ox O2 Delivery O2 Flow Rate FiO2 07/03/18 09:28 Room Air 07/03/18 08:00 98.2 63 20 144/81 (102) 96 Capillary Refill : I&O Intake and Output 07/03/18 00:00 Intake Total 1630 ml Output Total 1650 ml Balance -20 ml Intake Oral 1630 ml Output Urine Total 1650 ml # Voids 3 Results Lab Laboratory Tests 07/03/18 05:35: Hemoglobin 11.6, Hematocrit 36 Assessment/Plan Assessment/Plan Assess & Plan/Chief Complaint LEFT KNEE ARTHRITIS LEFT KNEE REPLACEMENT HYPERTENSION UNCONTROLLED PAIN CONSTIPATION LEFT KNEE ARTHRITIS - STATUS POST LEFT KNEE REPLACEMENT ON 07/01/18 - CONTINUE WITH PHYSICAL THERAPY, PAIN CONTROL WITH ORAL DILAUDID AND TYLENOL. AGREE WITH PLANS FOR DISCHARGE ON FRIDAY OR FRIDAY DEPENDING ON PT'S ABILITY TO AMBULATE AND PAIN CONTROL. HYPERTENSION - UNCONTROLLED - DOSE OF LISINOPRIL 10MG PO NOW AND 5MG IN MORNING , WHEN PAIN IS IMPROVED, HER USUAL DOSE OF LISINOPRIL SHOULD CONTROL HER BLOOD PRESSURE MORE EFFECTIVELY. UNCONTROLLED PAIN - CONTINUE WITH TYLENOL AND DILAUDID. CONSTIPATION - PT ON MAGNESIUM, SHE DID NOT WANT ADDITIONAL MEDICATION TONIGHT. THANK YOU FOR THE CONSULT Clinical Quality Measures DVT/VTE Risk/Contraindication: Risk Factor Score Per Nursin RFS Level Per Nursing on Admit: 4+=Very High LUPE HOLMAN MD Jul 03, 2018 10:13
--- NOTE | 2018-07-03 11:05 | NUR ---
CM/SS. PT reported that patient's home FWW may not be correct for size. Physician provided order, patient will assess home FWW about adjustment. Order given to patient and her spouse, they understand they can go to [facility] for a new FWW if desired. [facility]
[2018-07-03 12:00] VITALS: BP 162/88
--- NOTE | 2018-07-03 12:05 | NUR ---
discharge instructions given, verbalized understanding of prescriptions, lauren ice pack, patrizia malone, home health and follow up appointments
[2018-07-03 12:20] VITALS: BP 162/88
--- NOTE | 2018-07-03 12:20 | NUR ---
DAYO ZAMORA demonstrates understanding of discharge instructions and accurately returns instructions upon questioning. Copy of Post-Discharge Instructions and Medication Discharge Instructions given to patient. DAYO ZAMORA is able to manage continuing needs after discharge. Patients belongings returned to . Skin dry and intact; no breakdown noted. Patient discharged from 407-1 on at 1220 . DAYO ZAMORA left floor via w/c, accompanied by staff and .
--- NOTE | 2018-07-03 14:14 | Occupational Ther Daily Note ---
OT Current Status-Daily Note Subjective Pt in her room sitting in bed , alert & cooperative. Pt states that " I lost my Narcotic prescription & I found it now. ." Pt agree for OT treatment. Pain Numeric Pain Scale: 5-Moderate Pain Location: Left Location Body Site: Knee Pain Description: Ache, Acute Mental Status/Objective Patient Orientation: Person, Place, Time, Situation Therapy Code Descriptions/Definitions Functional [place] Measure: 0=Not Assessed/NA 4=Minimal Assistance 1=Total Assistance 5=Supervision or Setup 2=Maximal Assistance 6=Modified [place] 3=Moderate Assistance 7=Complete [place] Attachments: Polar Pack, Saline Lock ADL-Treatment Pt participated in sponge bath activity, groomin & strengthening ex to BUE. Pt wipes UB & LB, Neck & around neck activity, chest, back , legs , arms & brush her hairs Independently. Eating (FIM): 7 Grooming (FIM): 6 Bathing (FIM): 3 Bathing Location: L Arm, R Arm, L Upper Leg, R Upper Leg, L Lower Leg ( including foot), R Lower Leg (including foot), Chest, Abdomen, Buttocks, Perineal Area Upper Body (FIM): 6 Lower Body Dressing (FIM): 3 Toileting (FIM): 5 Transfers (B, C, W/C) (FIM): 4 Toilet/Commode Transfer (FIM): 4 Tub Transfer(FIM): 0 Education OT Patient Education: Correct positioning, Instructions to caregiver, Purpose of tx/functional activities, Reviewed precautions, Safety issues, Transfer techniques Teaching Recipient: Patient Teaching Methods: Demonstration, Discussion Response to Teaching: Verbalize Understanding, Return Demonstration OT Short Term Goals Short Term Goals Time Frame: Jul 16, 2018 Eating(FIM): 7 Grooming(FIM): 7 Bathing(FIM): 5 Bathing Location: L Arm, R Arm, L Upper Leg, R Upper Leg, L Lower Leg ( including foot), R Lower Leg (including foot), Chest, Abdomen, Buttocks, Perineal Area Upper Body Dressing(FIM): 7 Lower Body Dressing(FIM): 6 Toileting(FIM): 7 Transfers (B,C,W/C) (FIM): 6 Toilet/Commode Transfer(FIM): 6 Shower Transfer(FIM): 7 Additional Short Term Goals: 1-Demonstrate ADL Tasks, 2-Verbalize Understanding , 3-ImproveStrength/Rad 1=Demonstrate adherence to instructed precautions during ADL tasks. 2=Patient will verbalize/demonstrate understanding of assistive devices/ modifications for ADL. 3=Patient will improve strength/tolerance for activity to enable patient to perform ADL's. OT Denture Contour Wire Specialist Goals [facility] Goals Time Frame: Jul 30, 2018 Eating (FIM): 7 Grooming(FIM): 7 Bathing(FIM): 6 Bathing Location: L Arm, R Arm, L Upper Leg, R Upper Leg, L Lower Leg ( including foot), R Lower Leg (including foot), Chest, Abdomen, Buttocks, Perineal Area Upper Body Dressing(FIM): 7 Lower Body Dressing(FIM): 7 Toileting(FIM): 7 Transfers (B,C,W/C) (FIM): 7 Toilet/Commode Transfer(FIM): 7 Tub Transfer(FIM): 7 Shower Transfer(FIM): 7 Additional Goals: 1-Demonstrate ADL Tasks, 2-Verbalize Understanding, 3- ImproveStrength/Rad 1=Demonstrate adherence to instructed precautions during ADL tasks. 2=Patient will verbalize/demonstrate understanding of assistive devices/ modifications for ADL. 3=Patient will improve strength/tolerance for activity to enable patient to perform ADL's. OT Education/Plan Problem List/Assessment Assessment: Decreased Activ Tolerance, Decreased Safety Aware, Decreased UE Strength, Dependent Transfers, Impaired Bed Mobility, Impaired Funct Balance, Impaired Self-Care Skills Discharge Recommendations Plan/Recommendations: Continue POC Therapy D/C Recommendations: Home w/ Family Support, Occupational Therapy Home Care Equpiment Recommendations-D/C: Extended Bath Bench, Extended Shower Sprayer, Freelance Displayer, [place] Patient/Family Goals To return home with spouse Independently with AD. Treatment Plan/Plan of Care Treatment,Training & Education: Yes Patient would benefit from OT for education, treatment and training to promote independence in ADL's, mobility, safety and/or upper extremity function for ADL' s. Plan of Care: ADL Retraining, Caregiver Training, Functional Mobility, UE Funct Exercise/Act, UE Neuromus Re-Ed/Coord Treatment Duration: Jul 30, 2018 Frequency: 5 times per week Estimated Hrs Per Day: .5 hour per day Agreement: Yes Rehab Potential: Good Time/GCodes Start Time: 10:25 Stop Time: 10:54 Total Time Billed (hr/min): 29 Billed Treatment Time 1, ADLs 18 min & FA 11 min Total 29 minutes. DONALD RODRIGUEZ OT Jul 03, 2018 14:14
== END 2018-07-03 12:20 | disposition home health service (06) | DRG 470 ==
LOC: 4TH 07:33 → SURG 07:34 → 4TH 12:26
PROVIDERS: ADMIT Orthopaedic Surgery; ATTEND Orthopaedic Surgery
PROC: 0SRD0J9 Replacement of Left Knee Joint with Synthetic Substitute, Cemented, Open Approach (ICD-10-PCS; principal; 2018-07-01 09:28)
DX: M17.12 Unilateral primary osteoarthritis, left knee (principal); I10 Essential (primary) hypertension; K59.09 Other constipation; J30.2 Other seasonal allergic rhinitis; Z96.651 Presence of right artificial knee joint
CPT/HCPCS: 36415; 73560; 85014; 85018; 86850; 86900; 86901; 94664

== ENCOUNTER 2018-10-05 08:00 | Outpatient (RCR) | payer MEDICARE, OTHER ==
[~2018-10-05 08:00] MED LIST changes: +OCUVITE SOFTGE1 EACH PO; +OXYC1TAB87 PO; -VIT1CAPS9 PO
== END 2018-10-07 10:46 | disposition home or self-care (01) ==
PROVIDERS: ATTEND Nurse Practitioner Family
DX: Z47.1 Aftercare following joint replacement surgery (principal); Z96.652 Presence of left artificial knee joint

== ENCOUNTER 2019-01-05 07:59 | Outpatient (RCR) | payer MEDICARE, OTHER | END 2019-01-05 12:30 | disposition home or self-care (01) | PROVIDERS: ATTEND Nurse Practitioner Family | DX: Z47.1 Aftercare following joint replacement surgery (principal); Z96.652 Presence of left artificial knee joint ==

== ENCOUNTER 2019-04-24 11:22 | Emergency (ER) | payer MEDICARE, OTHER ==
[~2019-04-24] VITALS: Ht 168 cm; Wt 91.0 kg
[2019-04-24] MEDS ORDERED: IBUPROFEN 800 MG (MOTRIN) TAB PO ONE (12:30)
[2019-04-24] MEDS ORDERED: ACETAMINOPHEN 500 MG TAB (TYLENOL) PO ONE (12:30)
--- NOTE | 2019-04-24 12:43 | ED Upper Extremity ---
General Chief Complaint: Upper Extremity Stated Complaint: FALL - L WRIST PAIN Nursing Triage Note: Patient reports walking out of her shed on a wet ramp and falling onto her outstretched L arm. Patient c/o L wrist pain, denies other injury Nursing Sepsis Screen: No Definite Risk Source: patient Exam Limitations: no limitations History of Present Illness Date Seen by Provider: Apr 24, 2019 Time Seen by Provider: 12:42 Initial Comments To ER with left wrist pain after a trip and fall this morning. Onset: just prior to arrival Severity: moderate Pain/Injury Location: left wrist Method of Injury: fell Modifying Factors: Worse With Movement Allergies and Home Medications Allergies Coded Allergies: codeine (Verified Allergy, Severe, RACING HEART, 06/24/18) hydrocodone (Verified Allergy, Severe, "HEART RACES, FEEL LIKE I CAN'T BREATHE", 07/01/18) oxycodone (Verified Allergy, Severe, "HEART RACES, FEEL LIKE I CAN'T BREATHE", 07/01/18) Sulfa (Sulfonamide Antibiotics) (Verified Allergy, Mild, "DOES NOT WORK", 06/24/18) ciprofloxacin (Verified Allergy, Unknown, PT REFUSES TO TAKE, 06/24/18) Home Medications Ascorbic Acid 250 Mg Tab, 500 MG PO DAILY, (Reported) take 2 (250mg) tabs Calcium Carbonate/Vitamin D3 1 Each Tablet, 2 TAB PO DAILY, (Reported) Cranberry Extract 500 Mg Tablet, 1,000 MG PO DAILY, (Reported) take 2 (500mg) tabs D-Mannose 50 Gm Powder, 5 ML PO BID, (Reported) Estradiol 42.5 Gm Cream.appl, 0.1 GM VG twice a week, (Reported) Fexofenadine HCl 180 Mg Tablet, 180 MG PO DAILY, (Reported) Lisinopril 5 Mg Tablet, 5 MG PO DAILY, (Reported) Multivit/Iron/FA/K/Herb No.244 1 Each Tablet, 1 EACH PO DAILY, (Reported) Potassium Gluconate 99 Mg Tablet, 99 MG PO DAILY, (Reported) Vit C/Vit E/Lutein/Min/[place]-3 1 Each Capsule, 1 EACH PO DAILY, (Reported) Vitamin B Complex & Vit C No.3 1 Each Capsule, 1 EACH PO DAILY, (Reported) Vitamin C/Biotin 1 Each Tab.chew, 1 EACH PO DAILY, (Reported) [Iodine T8] , 1 TAB PO BID, (Reported) [curamin] , 1 TAB PO DAILY, (Reported) [magnesium 2T calm] , 1 TAB PO DAILY, (Reported) Patient Home Medication List Home Medication List Reviewed: Yes Review of Systems Constitutional: see HPI EENTM: see HPI Respiratory: no symptoms reported Cardiovascular: no symptoms reported Genitourinary: no symptoms reported Musculoskeletal: see HPI Skin: no symptoms reported Psychiatric/Neurological: No Symptoms Reported Past Aiztefz-Tjtzbu-Ensmzi Hx Patient Social History Alcohol Use: Denies Use Recreational Drug Use: No Smoking Status: Never a Smoker 2nd Hand Smoke Exposure: No Recent Foreign Travel: No Contact w/Someone Who Travel: No Recent Infectious Disease Expo: No Recent Hopitalizations: No Immunizations Up To Date Date of Pneumonia Vaccine: Mar 27, 2014 Date of Influenza Vaccine: Mar 02, 2018 Seasonal Allergies Seasonal Allergies: Yes Past Medical History Surgeries: Yes (A&P REPAIR, R TKR, TOE SX, R KNEE SCOPE) Hysterectomy, Tonsillectomy Respiratory: No Cardiac: Yes Hypertension Neurological: No Sexually Transmitted Disease: No HIV/AIDS: No Genitourinary: Yes UTI-Chronic Gastrointestinal: Yes Chronic Constipation Musculoskeletal: Yes (HAMMERTOES) Arthritis Endocrine: Yes (STATES "THYROID IS SLUGGISH", TAKES OTC SUPPLEMENT) HEENT: Yes (GLASSES, PARTIAL DENTURES) Loss of Vision: Bilateral Hearing Impairment: Denies Cancer: No Psychosocial: No Integumentary: No Blood Disorders: No Adverse Reaction/Blood Tranf: No (N/A) Family Medical History Arthritis Asthma Cardiovascular disease Cataracts Deafness or hearing loss Glaucoma Hypercholesterolemia Hypertension Myocardial infarction Respiratory disorder Thyroid disease Visual disorder Physical Exam Vital Signs Vital Signs - First Documented 04/24/19 12:05 Temp 36.8 Pulse 59 Resp 18 B/P (MAP) 155/102 (119) Pulse Ox 99 Capillary Refill : Less Than 3 Seconds Height, Weight, BMI Height: 5'6.00" Weight: 206lbs. 7.0oz. 93.928267bt; 32.00 BMI Method: General Appearance: WD/WN, no apparent distress HEENT: PERRL/EOMI Neck: non-tender, full range of motion Respiratory: no respiratory distress, no accessory muscle use Gastrointestinal: normal bowel sounds, non tender Shoulder: normal inspection, non-tender Elbow/Forearm: normal inspection, non-tender, normal ROM, Left Wrist: Yes limited ROM, Yes pain, Yes soft tissue tenderness, Yes swelling Hand: normal inspection, non-tender Neurologic/Tendon: normal sensation, normal motor functions, normal tendon functions Neurologic/Psychiatric: alert, normal mood/affect, oriented x 3 Skin: normal color, warm/dry Progress/Results/Core Measures Results/Orders My Orders Orders - ROBLEDO,RIGOBERTO Feldman APRN Wrist, Left, 3 Views Or More (04/24/19 12:28) Acetaminophen Tablet (Tylenol Tablet) (04/24/19 12:30) Ibuprofen Tablet (Motrin Tablet) (04/24/19 12:30) Medications Given in ED Current Medications Medications Dose Ordered Sig/Eugenio Route Start Time Stop Time Status Last Admin Dose Admin Acetaminophen 1,000 mg ONCE ONCE PO 04/24/19 12:30 04/24/19 12:31 DC 04/24/19 12:37 1,000 MG Ibuprofen 800 mg ONCE ONCE PO 04/24/19 12:30 04/24/19 12:31 DC 04/24/19 12:37 800 MG Vital Signs/I&O 04/24/19 12:05 Temp 36.8 Pulse 59 Resp 18 B/P (MAP) 155/102 (119) Pulse Ox 99 Departure Communication (Admissions) She states normally for pain she just takes Tylenol and ibuprofen. She does not want anything stronger. I did place her in a sugar tong style splint Impression Primary Impression: Left radial fracture Qualified Codes: S52.352A - Displaced comminuted fracture of shaft of radius, left arm, initial encounter for closed fracture Disposition: 01 HOME, SELF-CARE Condition: Stable Departure-Patient Inst. Decision time for Depature: 12:46 Referrals: EULALIO SEALS MD, HOLLY A MD (PCP/Family) Primary Care Physician ZAINAB MO JONATHAN MD MCNEMAR,ARIEL CAIN MD, ROBERT F DO ZAFUTA, MICHAEL P MD Patient Instructions: Wrist Fracture (DC) Add. Discharge Instructions: 1. Wear the splint at all times until you follow up with orthopedics. Call on Friday to make an appointment to be seen. Keep the splint clean and dry in the meantime this means a trash bag over the arm and duct taped at the top to keep this dry. Keep it elevated as much as possible. All discharge instructions reviewed with patient and/or family. Voiced understanding. RIGOBERTO ROBLEDO CAFETERIA OR LUNCHROOM CHECKER Apr 24, 2019 12:43 POS
--- NOTE | 2019-04-24 12:53 | Diagnostic Imaging Report ---
INDICATION: Left wrist injury. COMPARISON: None. FINDINGS: Three views of the left wrist demonstrate displaced angulated distal radial fracture. The visualized ulna is intact. Carpal bones are unremarkable. There is some widening of the scapholunate articulation which may indicate ligamentous tear. IMPRESSION: Distal radial fracture. Dictated by: Dictated on workstation # [id number]
[2019-04-24 13:15] VITALS: BP 155/102
== END 2019-04-24 13:18 | disposition home or self-care (01) ==
LOC: EDUNIT# 11:22 → ER 11:23
DX: S52.352A Displaced comminuted fracture of shaft of radius, left arm, initial encounter for closed fracture (principal); I10 Essential (primary) hypertension; Z90.89 Acquired absence of other organs; Z90.710 Acquired absence of both cervix and uterus; Z87.440 Personal history of urinary (tract) infections; Z88.5 Allergy status to narcotic agent; Z88.2 Allergy status to sulfonamides; Z88.1 Allergy status to other antibiotic agents; Z79.52 Long term (current) use of systemic steroids; Z82.49 Family history of ischemic heart disease and other diseases of the circulatory system; W01.0XXA Fall on same level from slipping, tripping and stumbling without subsequent striking against object, initial encounter
CPT/HCPCS: 29125; 73110

== ENCOUNTER → 2019-06-16 | Outpatient (CLI) | payer MEDICARE ==
[2019-06-17 03:32] LABS: ALTERNARIA MOLD RAST <0.35 kU/L (<0.35); RAGWEED RAST <0.35 kU/L (<0.35)
== END ==
LOC: LAB 08:41
PROVIDERS: ATTEND Nurse Practitioner
DX: J30.9 Allergic rhinitis, unspecified (principal); Z87.892 Personal history of anaphylaxis
CPT/HCPCS: 36415; 82785; 86003

== ENCOUNTER → 2019-07-01 | Outpatient (CLI) | payer MEDICARE | LOC: LAB 11:43 | PROVIDERS: ATTEND Otolaryngology Otolaryngology/Facial Plastic Surgery | DX: J30.9 Allergic rhinitis, unspecified (principal) | CPT/HCPCS: 36415; 86003 ==

== ENCOUNTER → 2019-12-01 | Outpatient (CLI) | payer MEDICARE ==
[2019-12-01 08:56] LABS: HEMOGLOBIN 13.4 G/DL (11.5-16.0); MEAN PLATELET VOLUME 10.9 FL (7.4-10.4); RED CELL DISTRIBUTION WIDTH 14.3 % (10.0-14.5); WHITE BLOOD COUNT 5.8 10^3/uL (4.3-11.0)
[2019-12-01 09:06] LABS: ALBUMIN 3.8 GM/DL (3.2-4.5); CHLORIDE 108 MMOL/L (98-107); POTASSIUM 4.3 MMOL/L (3.6-5.0); SODIUM 141 MMOL/L (135-145)
[2019-12-01 09:08] LABS: GLUCOSE 91 MG/DL (70-105); TOTAL PROTEIN 6.3 GM/DL (6.4-8.2); TRIGLYCERIDES 81 MG/DL (<150); VLDL CHOLESTEROL 16 MG/DL (5-40)
[2019-12-01 09:09] LABS: CARBON DIOXIDE 25 MMOL/L (21-32)
[2019-12-01 09:10] LABS: BILIRUBIN,TOTAL 0.4 MG/DL (0.1-1.0)
[2019-12-01 09:12] LABS: ALKALINE PHOSPHATASE 66 U/L (40-136); CREATININE SERUM 0.85 MG/DL (0.60-1.30); GFR ESTIMATED > 60
[2019-12-01 09:13] LABS: BUN/CREATININE RATIO 26; CHOLESTEROL 200 MG/DL (< 200)
[2019-12-01 09:14] LABS: HDL CHOLESTEROL 50 MG/DL (40-60)
[2019-12-01 09:15] LABS: ALANINE AMINOTRANSFERASE 21 U/L (0-55)
== END ==
LOC: LAB 08:37
PROVIDERS: ATTEND Family Medicine
DX: I10 Essential (primary) hypertension (principal); E78.2 Mixed hyperlipidemia
CPT/HCPCS: 36415; 80053; 80061; 84443; 85027

== ENCOUNTER → 2020-02-15 | Outpatient (CLI) | payer MEDICARE ==
[~2020-02-15] MED LIST changes: +ASCO250T16 PO; -C250T PO
--- NOTE | 2020-02-15 19:04 | Diagnostic Imaging Report ---
INDICATION: Routine screening. COMPARISON is made with prior mammograms from 08/21/2017 and 04/12/2016. 2-D and 3-D bilateral screening mammography was performed with CAD. Both breasts are heterogeneously dense, limiting the sensitivity of mammography. The parenchymal pattern is stable. No mass or malignant appearing microcalcifications are seen. Axillae are unremarkable. There are benign calcifications in both breasts. IMPRESSION: BI-RADS Category 2. No mammographic features suspicious for malignancy are identified. ACR BI-RADS Category 2: Benign findings. Result letter will be mailed to the patient. Note: At least 10% of breast cancer is not imaged by mammography. Dictated by: Dictated on workstation # [id number]
== END ==
LOC: RAD 13:03
PROVIDERS: ATTEND Nurse Practitioner Family
DX: Z12.31 Encounter for screening mammogram for malignant neoplasm of breast (principal)
CPT/HCPCS: 77063; 77067

== ENCOUNTER → 2020-03-07 | Outpatient (CLI) | payer MEDICARE | LOC: LABNPT 08:47 | PROVIDERS: ATTEND Orthopaedic Surgery | DX: Z20.828 Contact with and (suspected) exposure to other viral communicable diseases (principal) | CPT/HCPCS: 87635 ==

== ENCOUNTER → 2020-03-07 | Outpatient (CLI) | payer MEDICARE ==
[2020-03-07 09:20] LABS: BASOPHILS % (AUTO) 1 % (0-10); EOSINOPHILS # (AUTO) 0.2 10^3/uL (0.0-0.3); EOSINOPHILS % (AUTO) 3 % (0-10); HEMATOCRIT 40 % (35-52); HEMOGLOBIN 13.1 g/dL (11.5-16.0); LYMPHOCYTES # (AUTO) 1.8 10^3/uL (1.0-4.0); LYMPHOCYTES % (AUTO) 27 % (12-44); MEAN CORPUSCULAR HEMOGLOBIN 28 pg (25-34); MEAN CORPUSCULAR HGB CONC 33 g/dL (32-36); MEAN CORPUSCULAR VOLUME 84 fL (80-99); MEAN PLATELET VOLUME 11.1 fL (9.0-12.2); MONOCYTES # (AUTO) 0.3 10^3/uL (0.0-1.0); MONOCYTES % (AUTO) 5 % (0-12); NEUTROPHILS # (AUTO) 4.2 10^3/uL (1.8-7.8); NEUTROPHILS % (AUTO) 65 % (42-75); PLATELET COUNT 233 10^3/uL (130-400); WHITE BLOOD COUNT 6.5 10^3/uL (4.3-11.0)
[2020-03-07 09:43] LABS: BUN/CREATININE RATIO 27; CALCIUM 8.8 MG/DL (8.5-10.1); CARBON DIOXIDE 23 MMOL/L (21-32); CHLORIDE 109 MMOL/L (98-107); CREATININE SERUM 0.79 MG/DL (0.60-1.30); GFR ESTIMATED > 60; GLUCOSE 97 MG/DL (70-105); POTASSIUM 4.1 MMOL/L (3.6-5.0); PROTHROMBIN TIME PATIENT 13.2 SEC (12.2-14.7); SODIUM 142 MMOL/L (135-145)
[2020-03-07 09:45] LABS: ERYTHROCYTE SEDIMENTATION RATE 9 MM/HR (0-30)
[2020-03-07 09:48] LABS: BILIRUBIN,URINE NEGATIVE (NEGATIVE); CLARITY,URINE CLEAR; COLOR,URINE YELLOW; GLUCOSE, URINE (UA) NEGATIVE (NEGATIVE); KETONES,URINE NEGATIVE (NEGATIVE); LEUKOCYTE ESTERASE ,URINE 1+ (NEGATIVE); NITRITE,URINE NEGATIVE (NEGATIVE); PH,URINE 7.5 (5-9); PROTEIN,URINE NEGATIVE (NEGATIVE)
[2020-03-07 09:54] LABS: BACTERIA,URINE TRACE /HPF; SQUAMOUS EPITHELIAL CELL,UR RARE /HPF
== END ==
LOC: LAB 08:51
PROVIDERS: ATTEND Orthopaedic Surgery
DX: Z01.812 Encounter for preprocedural laboratory examination (principal)
CPT/HCPCS: 36415; 80048; 81000; 83036; 85025; 85610; 85652; 85730; 86141; 93005

== ENCOUNTER → 2021-02-23 | Outpatient (CLI) | payer MEDICARE ==
[~2021-02-23] MED LIST changes: -CRAN500T2 PO; +CRAN500T3 PO; -LISI-556 PO; +LISI-729 PO
[2021-02-23 09:37] LABS: BASOPHILS % (AUTO) 1 % (0-10); EOSINOPHILS # (AUTO) 0.1 10^3/uL (0.0-0.3); EOSINOPHILS % (AUTO) 3 % (0-10); HEMATOCRIT 44 % (35-52); HEMOGLOBIN 14.3 g/dL (11.5-16.0); LYMPHOCYTES # (AUTO) 1.4 10^3/uL (1.0-4.0); LYMPHOCYTES % (AUTO) 25 % (12-44); MEAN CORPUSCULAR HEMOGLOBIN 28 pg (25-34); MEAN CORPUSCULAR HGB CONC 33 g/dL (32-36); MEAN CORPUSCULAR VOLUME 86 fL (80-99); MONOCYTES # (AUTO) 0.2 10^3/uL (0.0-1.0); MONOCYTES % (AUTO) 4 % (0-12); NEUTROPHILS # (AUTO) 3.8 10^3/uL (1.8-7.8); NEUTROPHILS % (AUTO) 68 % (42-75); PLATELET COUNT 209 10^3/uL (130-400); WHITE BLOOD COUNT 5.5 10^3/uL (4.3-11.0)
[2021-02-23 10:18] LABS: BILIRUBIN,TOTAL 0.4 MG/DL (0.1-1.0); CALCIUM 9.6 MG/DL (8.5-10.1); CREATININE SERUM 0.77 MG/DL (0.60-1.30); POTASSIUM 3.9 MMOL/L (3.6-5.0); TOTAL PROTEIN 6.8 GM/DL (6.4-8.2)
--- NOTE | 2021-02-23 12:37 | Diagnostic Imaging Report ---
INDICATION: Routine screening. Comparison is made with prior mammogram from 02/13/2020 and 08/21/2017. 2-D and 3-D bilateral screening mammography was performed with CAD. Both breasts are heterogeneously dense, limiting the sensitivity of mammography. The parenchymal pattern is stable. No mass or malignant-appearing microcalcifications are seen. Axillae are unremarkable. IMPRESSION: BI-RADS Category 1 No mammographic features suspicious for malignancy are identified. ACR BI-RADS Category 1: Negative. Result letter will be mailed to the patient. Note: At least 10% of breast cancer is not imaged by mammography. Dictated by: Dictated on workstation # [id number]
== END ==
LOC: RAD 08:46
PROVIDERS: ATTEND Nurse Practitioner Family
DX: Z12.31 Encounter for screening mammogram for malignant neoplasm of breast (principal); I10 Essential (primary) hypertension; E55.9 Vitamin D deficiency, unspecified; Z86.39 Personal history of other endocrine, nutritional and metabolic disease
CPT/HCPCS: 36415; 77063; 77067; 80053; 80061; 82306; 84443

== ENCOUNTER → 2021-03-06 | Outpatient (CLI) | payer MEDICARE ==
--- NOTE | 2021-03-06 17:00 | Diagnostic Imaging Report ---
INDICATION: Postmenopausal COMPARISON: None FINDINGS: AP Spine L1-L4: [BMD (g/cm2): 1.375] [T-Score: 1.5] [Z-Score: 2.6] [BMD Previous: na] [BMD % Change: na] LT Hip Neck: [BMD (g/cm2): 0.829] [T-Score: -1.5] [Z-Score: 0.0] LT Hip Total: [BMD (g/cm2):0.947] [T-Score:-0.5] [Z-Score: 0.8] [BMD Previous: na] [BMD % Change: na] RT Hip Neck: [BMD (g/cm2):0.804] [T-Score:-1.7] [Z-Score:-0.1] RT Hip Total: [BMD (g/cm2):0.945] [T-score:-0.5] [Z-Score:0.8] [BMD Previous:na] [BMD % Change:na] *Indicates significant change from prior examination based on 95% confidence level. World Health Organization criteria for BMD interpretation classify patients as Normal (T-score at or above -1.0), Osteopenic (T-score between -1.0 and -2.5) or Osteoporotic (T-score at or below -2.5). LIMITATIONS AND MODIFICATION: None. FRACTURE RISK (FRAX SCORE): The ten year probability of (%): Major Osteoporotic Fracture: [17.6] Hip Fracture: [3.6] IMPRESSION: 1. Osteopenia (Low bone mass). 2. See below National Osteoporosis Foundation guidelines on when to potentially initiate pharmacologic therapy. Based on the National Osteoporosis Foundation Guidelines, pharmacologic treatment should be initiated in any of the following, unless clinical conditions suggest otherwise: * Any patient with prior fragility fracture of the hip or vertebrae. A spine fracture indicates 5X risk for subsequent spine fracture and 2X risk for subsequent hip fracture. * Osteoporosis (T-score <-2.5). * Postmenopausal women and men age 50 and older with low bone mass/osteopenia (T-score between -1.0 and -2.5) by DXA and 10-year major osteoporotic fracture greater than 20% or a 10-year probability of hip fracture greater than 3%. These fracture risks are supplied above in the FRAX score, if applicable. * Clinician judgement and/or patient preferences may indicate treatment for people with 10-year fracture probabilities above or below these levels. Dictated by: Dictated on workstation # [id number]
== END ==
LOC: RAD 13:00
PROVIDERS: ATTEND Family Medicine
DX: M85.80 Other specified disorders of bone density and structure, unspecified site (principal); Z78.0 Asymptomatic menopausal state
CPT/HCPCS: 77080

== ENCOUNTER → 2022-01-07 | Outpatient (CLI) | payer MEDICARE ==
[~2022-01-07] MED LIST changes: -CRAN500T3 PO; +CRAN500T4 PO; -LISI-729 PO; +LISI5TAB20 PO; -POTA99TA21 PO; +POTA99TA26 PO
== END ==
LOC: CARD 09:35
PROVIDERS: ATTEND Nurse Practitioner Family
DX: I11.9 Hypertensive heart disease without heart failure (principal); I34.0 Nonrheumatic mitral (valve) insufficiency; Z86.16 Personal history of COVID-19
CPT/HCPCS: 93306

== ENCOUNTER → 2022-03-19 | Outpatient (CLI) | payer MEDICARE ==
--- NOTE | 2022-03-19 15:16 | Diagnostic Imaging Report ---
Indication: Routine screening. Comparison is made with prior mammograms 02/23/2021 and 02/15/2020. 2-D and 3-D bilateral screening mammography was performed with CAD. Both breasts are heterogeneously dense, limiting the sensitivity of mammography. There are occasional benign calcifications in both breasts. No mass or malignant-appearing microcalcifications are seen. Axillae are unremarkable. IMPRESSION: BI-RADS Category 2. No mammographic features suspicious for malignancy are identified. ACR BI-RADS Category 2: Benign findings. Result letter will be mailed to the patient. Note: At least 10% of breast cancer is not imaged by mammography. Dictated by: Dictated on workstation # [id number]
== END ==
LOC: RAD 09:54
PROVIDERS: ATTEND Nurse Practitioner Family
DX: Z12.31 Encounter for screening mammogram for malignant neoplasm of breast (principal)
CPT/HCPCS: 77063; 77067

== ENCOUNTER → 2023-03-21 | Outpatient (CLI) | payer MEDICARE ==
--- NOTE | 2023-03-21 12:18 | Diagnostic Imaging Report ---
Indication: Routine screening. Comparison is made with prior mammograms 03/19/2022 and 02/23/2021. 2-D and 3-D bilateral screening mammography was performed with CAD. Both breasts are heterogeneously dense, limiting the sensitivity of mammography. The parenchymal pattern is stable. No mass or malignant-appearing microcalcifications are seen. Benign calcifications are noted in the right breast. Axillae are unremarkable. IMPRESSION: BI-RADS Category 2 No mammographic features suspicious for malignancy are identified. ACR BI-RADS Category 2: Benign findings. Result letter will be mailed to the patient. Note: At least 10% of breast cancer is not imaged by mammography. Dictated by: Dictated on workstation # [id number]
== END ==
LOC: RAD 09:44
PROVIDERS: ATTEND Internal Medicine
DX: Z12.31 Encounter for screening mammogram for malignant neoplasm of breast (principal)
CPT/HCPCS: 77063; 77067